=== PATIENT | male | born 1975 | race Caucasian/White ===

== ENCOUNTER 2023-10-13 23:13 | Emergency (ER) | payer MEDICAID, OTHER, SELFPAY ==
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
[2023-10-13 23:21] VITALS: BP 134/96; BP 151/82; PULSE 83; PULSE 84; RESP 18; TEMP 37.2; O2SAT 96; O2SAT 99; BMI 26.9
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
[2023-10-14] MEDS: Ibuprofen 600 MG TABLET PO (00:06)
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
[2023-10-14 01:00] VITALS: BP 151/82; PULSE 84; RESP 18; TEMP 37.2; O2SAT 96
== END 2023-10-14 01:01 ==
PROVIDERS: Emergency Provider Internal Medicine
DX: S20.211A Contusion of right front wall of thorax, initial encounter (principal); Y35.93XA Legal intervention, means unspecified, suspect injured, initial encounter; Y93.9 Activity, unspecified; Y92.9 Unspecified place or not applicable; Y99.9 Unspecified external cause status; R07.81 Pleurodynia; Z65.3 Problems related to other legal circumstances
CPT/HCPCS: 71101; 99283; 99284

== ENCOUNTER 2024-01-15 20:33 | Emergency (ER) | payer MEDICAID, OTHER, SELFPAY ==
--- NOTE | ~2024-01-15 | CT_ITS ---
EXAMINATION: IV contrast enhanced CT of the lumbar spine. CLINICAL INFORMATION: Back pain. No trauma. IV drug use. Rule out abscess. COMPARISON: None available. TECHNIQUE: IV contrast and CT of the lumbar spine. This CT examination was performed using dose optimization techniques as appropriate, variously including the following: *Automated exposure control *Adjustment of mA and/or kV according to patient size (this includes techniques or standardized protocols for targeted exams where dose is matched to indication/reason for exam; i.e. extremities or head) *Use of iterative reconstruction technique Intravenous contrast: Omnipaque 350 85 mL DLP: 424 mGy-cm FINDINGS: 5 lumbar type vertebral bodies are identified. Minimal lumbarization of the presumed S1 vertebral body is noted with a rudimentary intervertebral disc present at S1-S2. No vertebral body endplate erosions are noted. No paraspinous soft tissue inflammatory changes or phlegmonous changes noted. The psoas muscles are normal in appearance. Close scrutiny of the central canal demonstrates no findings suspicious for epidural abscess or phlegmon formation. No fractures identified. L3-L4: Partial visualization of moderate central stenosis secondary to moderate posterior broad-based disc bulge and moderate bilateral ligamentum flavum hypertrophy. L4-L5: Partial visualization of at least mild central stenosis secondary to mild posterior broad-based disc bulge and moderate bilateral ligamentum flavum hypertrophy. L5-S1: No central or foraminal stenoses identified. CT/CT lumbar spine w IV con IMPRESSION: *No evidence of infection. No findings suspicious for discitis-osteomyelitis or paraspinous infection. No gross evidence of epidural phlegmon or abscess. As clinically indicated, consider further evaluation with MRI is more sensitive examination for detection of possible infection. *Mild to moderate multilevel chronic spondylosis as detailed above. Electronically signed by: Jorge Luis Jean MD 01/16/2024 02:10 AM EDT
[2024-01-15 20:41] VITALS: BP 150/98; PULSE 92; O2SAT 100
[2024-01-15 20:44] VITALS: BMI 23.5
[2024-01-15 21:01] VITALS: BP 151/92; PULSE 90; RESP 15; TEMP 36.6; O2SAT 94
--- NOTE | 2024-01-15 21:05 | MHC.EDTECH ---
This tech assumed care of this ptupon arrival. pt refuses to change management consultant into a hospital gown. Pt states he is in to much pain to change yet is fast asleep on the stretcher
--- NOTE | 2024-01-16 00:12 | ED_ITS ---
HPI - Back Pain/Injury General Chief Complaint: Back Pain/Injury Stated Complaint: BACK PAIN S/P FALL 2 DAYS AGO Time Seen by Provider: 01/15/24 23:46 Source: patient and EMS Mode of arrival: EMS Limitations: no limitations History of Present Illness ED Provider: Dr. Ana Laura Auguste HPI Narrative: Patient comes to the emergency room via ambulance complaining of 10/10 back pain in the lumbar area. Initially, EMS reported that the patient said that 2 days ago he fell at work and his back has been hurting since then. However, when I spoke to the patient, states that he did not fall, his back you starting hurting. Patient took himself off Suboxone and gabapentin 2 months ago and has been using street IV drugs including heroin and cocaine. Patient denies fever chills. Patient states that the pain is localized, denies any radiation to lower extremities. Denies saddle anesthesia. Denies urinary/fecal incontinence/retention. Related Data Previous Rx's ?Medication ?Instructions ?Recorded acetaminophen 500 mg capsule 1,000 mg (2 x 500 mg) PO QID PRN 01/16/24 fever or pain #20 caps cyclobenzaprine 10 mg tablet 10 mg PO TID PRN muscle spasm #10 01/16/24 tabs ketorolac 10 mg tablet 10 mg PO Q8H PRN pain #10 tabs 01/16/24 Allergies Allergy/AdvReac Type Severity Reaction Status Date / Time diphenhydramine Allergy Itching Verified 01/15/24 20:55 [From Angel] Review of Systems 2 Review of Systems: Constitutional : No Weight loss, No Fever, No Chills, No Night Sweats, No Fatigue, No Malaise ENT/Mouth : No Hearing loss, No Ear Pain, No Nasal Congestion, No Sinus Pain, No Hoarseness, No sore throat, No Rhinorrhea, No Swallowing Difficulty Eyes: No Eye Pain, No Swelling, No Redness, No Foreign Body, No Discharge, No Vision Changes Cardiovascular : No Chest Pain, No SOB, No Dyspnea on Exertion, No Orthopnea, No Edema, No Palpitations Respiratory : No Cough, No Sputum, No Wheezing, No Smoke Exposure, No Dyspnea Gastrointestinal : No Nausea, No Vomiting, No Diarrhea, No Constipation, No abdominal Pain, No Hematochezia, No Melena Genitourinary : no irregular bleeding, No Dysuria, No Urinary Frequency, No Hematuria, No Urinary Incontinence, No Urgency, No Flank Pain, No Urinary Flow Changes, No Hesitancy Musculoskeletal : Complaining of back pain in the lumbar area for 2 days, No joint pain, No Myalgias, No Joint Swelling Skin : No Skin Lesions, No rash Neuro : No Weakness, No Numbness, No Paresthesias, No Loss of Consciousness, No Dizziness, No Headache Psych : No Anxiety/Panic, No Depression, No SI/HI/AH/VH, No Social Issues, Heme/Lymph: No Bruising, No Bleeding,No Lymphadenopathy Endocrine : No Polyuria, No Polydipsia, No Temperature Intolerance [facility] Past Medical History Medical History (Updated 01/16/24 @ 02:32 by Ana Laura Auguste MD) Polysubstance abuse Social History Social History Alcohol intake: current Use of substances other than those prescribed or required for medical reasons: Yes Substance Use Type: Heroin Advance Directives: No Advance Directives Information Provided: Yes Do you have a plan to hurt others: No Plan Physical Exam 2 Vital Signs: Vital Signs: Last Vital Signs Temp 98.6 F 01/16/24 00:13 Pulse 82 01/16/24 00:13 Resp 18 01/16/24 00:13 BP 148/96 H 01/16/24 00:13 Pulse Ox 95 01/16/24 00:13 O2 Del Method Room Air 01/16/24 00:13 BMI result Body Mass Index 23.5 Const: Other: Appearance: Alert. Oriented X3. No acute distress. Eyes: Pupils equal, round and reactive to light. ENT: Pharynx normal. Neck: Normal inspection. Neck supple. No lymph nodes noted. No crepitus CVS: Normal heart rate and rhythm. Pulses normal. Normal S1 and S2 Respiratory: No respiratory distress. Breath sounds normal. No Wheezing. No rales Abdomen: Soft and nontender. No rigidity. No distention. Back: Pain to palpation on the lumbar spine area. No pain over the paraspinal muscles. Negative straight leg raise test bilaterally Skin: Skin warm and dry. Normal skin color. Normal skin turgor. Extremities: No lower extremity edema. No Lacerations. No Rash Neuro: Oriented X 3. No motor deficit. No sensory deficit. Moving all extremities. No slurred speech. CN 2 through 12 grossly intact Psych: calm, cooperative, normal affect Course Course Course Narrative: All of patient's labs pending Patient will need a CT scan of the lumbar spine with contrast to rule out an abscess Medications Administered Discontinued Medications Generic Name Dose Route Start Last Admin Trade Name Isidroq PRN Reason Stop Dose Admin Iohexol 85 ml 01/16/24 00:58 10 00:59 Iohexol 350 Mg/Ml 100 Ml Infus..Btl IV 01/16/24 00:59 85 ml ONCE ONE Administration Medical Decision Making Medical Decision Making [facility] Narrative: Interpretation of labs, patient's white blood cell count 11.3, chemistry unremarkable, LFTs slightly bumped, CRP elevated but not significantly. Urinalysis negative for UTI, urine toxicology positive for opiates, buprenorphine, fentanyl, cocaine and marijuana -my interpretation of CT scan, no obvious abnormality -CT report does not show diskitis or osteomyelitis or spinal abscess -patient requesting ketorolac for pain was given IV. Also given p.o. cyclobenzaprine. Differential Diagnosis Differential Diagnoses: The differential diagnosis associated with the presentation includes (Diskitis, osteomyelitis, spinal abscess, musculoskeletal pain) Admission/Observation Consideration of admission/observation: Escalation of care including admission/observation considered (Given patient's social history, past medical history, observation or hospitalization was considered) Lab Data [facility] Lab Attestation statement: I reviewed the patient's lab results. 01/16/24 00:40 01/16/24 00:40 Labs: Lab Results 01/16/24 01/16/24 Range/Units 00:19 00:40 WBC 11.3 H (4.8-10.8) X10*3/uL RBC 5.18 (4.60-5.80) X10*6/uL Hgb 14.9 (14.0-18.0) g/dl Hct 44.7 (42.0-52.0) % MCV 86.3 (80.0-98.0) fL MCH 28.8 (27.0-33.0) pg MCHC 33.3 (31.0-36.0) g/dl RDW 13.8 (11.0-16.0) % Plt Count 255 (160-400) X10*3/uL MPV 10.1 (9.4-12.4) fL Immature Gran % (Auto) 0.6 H (0.0-0.4) % Neut % (Auto) 74.3 H (45-73) % Lymph % (Auto) 15.1 L (20-40) % [place] % (Auto) 9.1 (2-11) % Eos % (Auto) 0.6 (0-4) % Baso % (Auto) 0.3 (0-2) % Lymph # (Auto) 1.7 (1.2-4.9) X10*3/uL [place] # (Auto) 1.0 (0.1-1.2) X10*3/uL Eos # (Auto) 0.1 (0.0-0.4) X10*3/uL Baso # (Auto) 0.0 (0.0-0.2) X10*3/uL Abs Immat Gran (auto) 0.07 H (0.00-0.03) X10*3/uL Absolute Neuts (auto) 8.4 H (2.0-8.3) x10*3/uL Absolute Nucleated RBC 0.000 (0.0-0.012) X10*3/uL Nucleated RBC % (auto) 0.0 (0.0-0.2) /100WBC PT 13.6 H (10.9-12.4) SEC INR 1.2 H (0.9-1.1) Sodium 139 (135-145) mmol/L Potassium 4.2 (3.3-5.1) mmol/L Chloride 103 (96-108) mmol/L Carbon Dioxide 28 (22-29) mmol/L Anion Gap 12 (12-20) BUN 13 (9-16) mg/dL Creatinine 0.93 (0.5-1.4) mg/dL Estim Creat Clear Calc 91.8 Estimated GFR > 60 Random Glucose 118 H (60-115) mg/dL Lactic Acid 0.9 (0.5-2.0) mmol/L Calcium 9.4 (8.4-10.2) mg/dL Total Bilirubin 0.4 (0.0-1.0) mg/dL Direct Bilirubin 0.2 (0.0-0.5) mg/dL AST 41 H (5-37) U/L ALT 50 H (0-40) U/L Alkaline Phosphatase 89 (39-117) U/L C-Reactive Protein 4.12 H (< or = 0.50) mg/dL Total Protein 7.4 (6.5-8.0) g/dL Albumin 4.0 (3.5-5.0) g/dL Urine Color Yellow Urine Appearance Clear Urine pH 6.5 (5.0-9.0) Ur Specific [place] 1.010 (1.005-1.025) Urine Protein Negative (Neg-Trace) mg/dL Urine Glucose (UA) Negative (Negative) mg/dL Urine Ketones Negative (Negative) mg/dL Urine Blood Negative (Negative) Urine Nitrite Negative (Negative) Ur Leukocyte Esterase Negative (Negative) Urine Opiates Screen POSITIVE H (Not Detect) Ur Buprenorphine Scrn Positive H (Not Detect) ng/mL Ur Oxycodone Screen Not Detected (Not Detect) ng/mL Urine Methadone Screen Not Detected (Not Detect) ng/mL Urine Fentanyl Screen POSITIVE H (Not Detect) Ur Barbiturates Screen Not Detected (Not Detect) Ur Phencyclidine Scrn Not Detected (Not Detect) Ur Amphetamines Screen Not Detected (Not Detect) U Benzodiazepines Scrn Not Detected (Not Detect) Urine Cocaine Screen POSITIVE H (Not Detect) U Marijuana (THC) Screen POSITIVE H (Not Detect) Independent Interpretation I performed an independent interpretation of an: CT Scan Radiology Impression Discussion of test interpretation with radiology: I have reviewed the radiologist's reading. Radiologist Impression: FINDINGS: 5 lumbar type vertebral bodies are identified. Minimal lumbarization of the presumed S1 vertebral body is noted with a rudimentary intervertebral disc present at S1-S2. No vertebral body endplate erosions are noted. No paraspinous soft tissue inflammatory changes or phlegmonous changes noted. The psoas muscles are normal in appearance. Close scrutiny of the central canal demonstrates no findings suspicious for epidural abscess or phlegmon formation. No fractures identified. L3-L4: Partial visualization of moderate central stenosis secondary to moderate posterior broad-based disc bulge and moderate bilateral ligamentum flavum hypertrophy. L4-L5: Partial visualization of at least mild central stenosis secondary to mild posterior broad-based disc bulge and moderate bilateral ligamentum flavum hypertrophy. L5-S1: No central or foraminal stenoses identified. CT/CT lumbar spine w IV con IMPRESSION: *No evidence of infection. No findings suspicious for discitis-osteomyelitis or paraspinous infection. No gross evidence of epidural phlegmon or abscess. As clinically indicated, consider further evaluation with MRI is more sensitive examination for detection of possible infection. *Mild to moderate multilevel chronic spondylosis as detailed above. Critical Care Time Critical Care Time Critical Care Time: Yes Total Critical Care Time: 60 Attestation: I have personally provided critical care time. Time includes review of lab data, radiology results, discussion with consultants, and monitoring for potential decompensation. Intervention performed as documented. Discharge Plan Discharge Clinical Impression: Polysubstance abuse, Musculoskeletal back pain Patient Disposition: Home, Self-Care Instructions: Polysubstance Abuse (ED), Back Pain (ED) Additional Instructions: Your medications were sent to the [facility] on [id number] Please follow-up with your primary care physician tomorrow. If you have any worsening or new symptoms, please return to the emergency room or call 911 Prescriptions: New ketorolac 10 mg tablet 10 mg PO Q8H PRN (Reason: pain) Qty: 10 0RF Rx Instructions: maximum total duration of 5 days from all oral, intranasal, or parenteral formulations cyclobenzaprine 10 mg tablet 10 mg PO TID PRN (Reason: muscle spasm) Qty: 10 0RF acetaminophen 500 mg capsule 1,000 mg PO QID PRN (Reason: fever or pain) Qty: 20 0RF Stand Alone Forms: Work/School Release Print Language: Tamazight
[2024-01-16 00:13] VITALS: BP 148/96; PULSE 82; RESP 18; TEMP 37; O2SAT 95
[2024-01-16 00:36] LABS: Appearance Urine Clear; Color Urine Yellow; Glucose Urine UA Negative (Negative); Leukocyte Esterase Urine Negative (Negative); Nitrite Urine Negative (Negative); PH 6.5 (5.0-9.0); Urine Blood Negative (Negative); Urine Ketones Negative (Negative); Urine Protein Negative (Neg-Trace)
[2024-01-16 00:46] LABS: Amphetamine Screen Urine Not Detected (Not Detect); Barbiturates, Urine Not Detected (Not Detect); Benzodiazepines Screen Urine Not Detected (Not Detect); Buprenorphine Scr Positive (Not Detect); Cannabinoid Screen Urine POSITIVE (Not Detect); Cocaine Screen Urine POSITIVE (Not Detect); Fentanyl, urine POSITIVE (Not Detect); Methadone Screen, Urine Not Detected (Not Detect); Opiate Screen Urine POSITIVE (Not Detect); Oxycodone Screen Urine Not Detected (Not Detect); Phencyclidine Screen Urine Not Detected (Not Detect)
[2024-01-16 00:51] LABS: MANUAL DIFF FLAG NO
[2024-01-16 00:53] LABS: Basophils Percent Auto 0.3 % (0-2); Eosinophils Absolute Auto 0.1 X10*3/uL (0.0-0.4); Eosinophils Percent Auto 0.6 % (0-4); Hematocrit 44.7 % (42.0-52.0); Hemoglobin 14.9 g/dl (14.0-18.0); Imm Gran Abs Auto 0.07 X10*3/uL (0.00-0.03); Imm Gran Pct Auto 0.6 % (0.0-0.4); Lymphocytes Absolute Auto 1.7 X10*3/uL (1.2-4.9); Lymphocytes Percent Auto 15.1 % (20-40); Mean Corpuscular HGB Conc 33.3 g/dl (31.0-36.0); Mean Corpuscular Hemoglobin 28.8 pg (27.0-33.0); Mean Corpuscular Volume 86.3 fL (80.0-98.0); Mean Platelet Volume 10.1 fL (9.4-12.4); Monocytes Percent Auto 9.1 % (2-11); Neutrophils Absolute Auto 8.4 x10*3/uL (2.0-8.3); Neutrophils Percent Auto 74.3 % (45-73); Platelet Count 255 X10*3/uL (160-400); Red Blood Count 5.18 X10*6/uL (4.60-5.80); Red Cell Distribution Width 13.8 % (11.0-16.0); White Blood Count 11.3 X10*3/uL (4.8-10.8)
[2024-01-16] MEDS: iohexoL 350 MG/ML 100 ML INFUS..BTL 85 ML IV (00:59)
[2024-01-16 01:01] LABS: INTERNATIONAL NORM RATIO 1.2 (0.9-1.1); Lactic Acid 0.9 mmol/L (0.5-2.0); Prothrombin Time 13.6 SEC (10.9-12.4)
[2024-01-16 01:07] LABS: Alanine Aminotransferase 50 U/L (0-40); Alkaline Phosphatase 89 U/L (39-117); Anion Gap 12 (12-20); Aspartate Amino Transferase 41 U/L (5-37); Bilirubin Direct 0.2 mg/dL (0.0-0.5); Bilirubin Total 0.4 mg/dL (0.0-1.0); Blood Urea Nitrogen 13 mg/dL (9-16); Calcium 9.4 mg/dL (8.4-10.2); Carbon Dioxide 28 mmol/L (22-29); Chloride 103 mmol/L (96-108); Creatinine Clr Calc Pharmacy 91.8; Estimated Glomerular Filt Rate > 60; Glucose Random 118 mg/dL (60-115); Potassium 4.2 mmol/L (3.3-5.1); Sodium 139 mmol/L (135-145); Total Protein 7.4 g/dL (6.5-8.0)
[2024-01-16 02:20] LABS: C Reactive Protein 4.12 mg/dL (< or = 0.50)
[2024-01-16] MEDS: Cyclobenzaprine HCl 10 MG TABLET PO (02:35)
[2024-01-16] MEDS: Ketorolac Tromethamine 30 MG/ML VIAL IVPUSH (02:36)
[2024-01-16 02:44] LABS: Erythrocyte Sedimentation Rate 16 MM/HR (0-15)
[2024-01-16 02:59] VITALS: BP 138/72; PULSE 75; RESP 16; TEMP 36.9; O2SAT 95
== END 2024-01-16 03:01 | disposition home or self-care (01) ==
PROVIDERS: Emergency Provider Emergency Medicine
DX: M54.50 Low back pain, unspecified (principal); F11.10 Opioid abuse, uncomplicated; M79.10 Myalgia, unspecified site; F14.10 Cocaine abuse, uncomplicated; F12.10 Cannabis abuse, uncomplicated; Z71.51 Drug abuse counseling and surveillance of drug abuser; Z79.899 Other long term (current) drug therapy; Z51.81 Encounter for therapeutic drug level monitoring
CPT/HCPCS: 36415; 72132; 80048; 80076; 80307; 81003; 83605; 85025; 85610; 85652; 86140; 87040; 87077; 87186; 87205; 96374; 99285; J1885; Q9967

== ENCOUNTER 2024-01-20 10:08 | Inpatient (IN) | payer MEDICAID, SELFPAY ==
--- NOTE | ~2024-01-20 | MR_ITS ---
EXAMINATION: MR LUMBAR SPINE WITHOUT AND WITH CONTRAST CLINICAL INFORMATION: ? Epidural abscess COMPARISON: None available. TECHNIQUE: MRI of the lumbar spine was obtained using routine sequences with and without contrast. Intravenous contrast: Magnevist 6 mL FINDINGS: There are 12 nonrib-bearing lumbar-type vertebrae. Mild dextrocurvature of the thoracolumbar junction. No listhesis. No acute bone marrow abnormality or suspicious enhancement. The vertebral body heights are preserved. Multilevel disc desiccation without significant disc height loss. The visualized spinal cord is normal in caliber. No abnormal cord signal or enhancement. The conus medullaris terminates at L1. No suspicious intracanalicular fluid collection identified. T12-L1: No significant spinal canal or neural foraminal narrowing. L1-2: Diffuse disc bulge. No significant spinal canal or neural foraminal narrowing. L2-3: Diffuse disc bulge and bilateral facet arthrosis. No significant spinal canal or neural foraminal narrowing. L3-4: Diffuse disc bulge. No significant spinal canal stenosis. Mild bilateral neural foraminal narrowing with the disc abutting the exiting L3 nerve roots bilaterally. L4-5: Diffuse disc bulge and bilateral facet arthrosis. No significant spinal canal stenosis. Mild bilateral neural foraminal narrowing with the disc abutting the exiting L4 nerve roots bilaterally. L5-S1: Diffuse disc bulge and bilateral facet arthrosis. No significant spinal canal stenosis. Mild bilateral neural foraminal narrowing with the disc abutting the exiting L5 nerve roots bilaterally. The paravertebral soft tissues are unremarkable. MR/MR lumbar spine wo/w con IMPRESSION: 1. No evidence of epidural abscess or other acute abnormality of the lumbar spine. 2. Multilevel degenerative changes of the lumbar spine without significant spinal canal stenosis. Mild bilateral neural foraminal narrowing from L3-L4 to L5-S1 with the disc abutting the exiting L3 through L5 nerve roots bilaterally. Electronically signed by: Varun Mcneil MD 01/20/2024 05:29 PM EDT
--- NOTE | ~2024-01-20 | XR_ITS ---
EXAMINATION: XR CHEST 2 VIEW CLINICAL INFORMATION: Chest pain COMPARISON: 10/13/2023 TECHNIQUE: PA and lateral views of the chest obtained. FINDINGS: The lungs are clear. There are no pleural effusions. The cardiomediastinal silhouette is normal. XR/XR chest 2V IMPRESSION: No acute cardiopulmonary disease. Electronically signed by: Kareem Stiles MD 01/20/2024 12:14 PM EDT RP
[2024-01-20 10:31] VITALS: BP 126/81; PULSE 87; RESP 18; TEMP 36.9; O2SAT 98; BMI 22.7
--- NOTE | 2024-01-20 11:20 | ECG_ITS ---
Test Reason : chest pain Blood Pressure : / mmHG Vent. Rate : 076 BPM Atrial Rate : 076 BPM P-R Int : 154 ms QRS Dur : 090 ms QT Int : 374 ms P-R-T Axes : 063 065 043 degrees QTc Int : 420 ms Normal sinus rhythm Minimal voltage criteria for LVH, may be normal variant ( Sokolow-Hernandez ) Borderline ECG No previous ECGs available Referred By: Tena Khalil Electronically Signed By:ELENA COVINGTON
[2024-01-20 11:55] LABS: MANUAL DIFF FLAG NO
[2024-01-20 12:01] LABS: Basophils Percent Auto 0.3 % (0-2); Eosinophils Absolute Auto 0.1 X10*3/uL (0.0-0.4); Eosinophils Percent Auto 0.5 % (0-4); Hematocrit 42.1 % (42.0-52.0); Hemoglobin 14.2 g/dl (14.0-18.0); Imm Gran Abs Auto 0.03 X10*3/uL (0.00-0.03); Imm Gran Pct Auto 0.3 % (0.0-0.4); Lymphocytes Absolute Auto 1.5 X10*3/uL (1.2-4.9); Lymphocytes Percent Auto 14.2 % (20-40); Mean Corpuscular HGB Conc 33.7 g/dl (31.0-36.0); Mean Corpuscular Hemoglobin 29.2 pg (27.0-33.0); Mean Corpuscular Volume 86.4 fL (80.0-98.0); Mean Platelet Volume 9.7 fL (9.4-12.4); Monocytes Absolute Auto 0.7 X10*3/uL (0.1-1.2); Monocytes Percent Auto 6.7 % (2-11); Neutrophils Absolute Auto 8.1 x10*3/uL (2.0-8.3); Platelet Count 321 X10*3/uL (160-400); Red Blood Count 4.87 X10*6/uL (4.60-5.80); Red Cell Distribution Width 13.2 % (11.0-16.0); White Blood Count 10.3 X10*3/uL (4.8-10.8)
[2024-01-20 12:08] LABS: Lactic Acid 0.7 mmol/L (0.5-2.0)
[2024-01-20 12:11] LABS: Anion Gap 11 (12-20); Blood Urea Nitrogen 13 mg/dL (9-16); Calcium 9.9 mg/dL (8.4-10.2); Carbon Dioxide 30 mmol/L (22-29); Chloride 98 mmol/L (96-108); Creatinine Clr Calc Pharmacy 97.6; Estimated Glomerular Filt Rate > 60; Glucose Random 112 mg/dL (60-115); Sodium 134 mmol/L (135-145)
[2024-01-20 12:37] LABS: C Reactive Protein 5.98 mg/dL (< or = 0.50)
--- NOTE | 2024-01-20 12:41 | ED_ITS ---
HPI - General Adult General Chief complaint: Recheck/Abnormal Lab/Rx Stated complaint: Back pain Time Seen by Provider: 01/20/24 12:40 History of Present Illness ED Provider: Dr. Rowell HPI narrative: 48 y/o M patient; [facility] polysubstance abuse; presents from home reporting he received a call that he had two positive blood cultures. The patient was seen in this emergency on 01/16/2024 for atraumatic lower back pain. He had a reassuring work up at that time and was discharged to home. His CT Lumbar Spine was unremarkable. He otherwise denies: nausea/vomiting, abdominal pain, cough/congestion, syncope. He denies: saddle anesthesia, urinary of stool incontinence. He has been ambulating without difficulty. Patient admits to use of IV cocaine and heroin - last used 1 bag of IV heroin, and 1 bag of crack cocaine immediately prior to arrival. Related Data Home Medications ?Medication ?Instructions ?Recorded ?Confirmed No Known Home Meds 01/20/24 01/20/24 Allergies Allergy/AdvReac Type Severity Reaction Status Date / Time diphenhydramine Allergy Itching Verified 01/20/24 10:37 [From Benadryl] Review of Systems 2 Review of Systems: Yes all other systems are reviewed and are negative Neurologic: Denies Sensory deficit (Neuro) [facility] Past Medical History Attestation statement: The following information was validated with the patient. Source: old records reviewed Medical History Polysubstance abuse Social History Social History Alcohol intake: current Use of substances other than those prescribed or required for medical reasons: Yes Substance Use Type: Heroin Last Used Substance: Just Prior to Admission Advance Directives: No Do you have a plan to hurt others: No Plan Physical Exam ED Vital Signs: Vital Signs - 24 hr 01/20/24 10:31 01/20/24 19:08 01/20/24 20:06 Temperature 98.4 F 98.5 F 98.7 F Pulse Rate 87 90 83 Respiratory Rate 18 16 16 Blood Pressure 126/81 128/86 150/94 H Pulse Oximetry 98 98 98 Oxygen Delivery Method Room Air Room Air Room Air BMI result Body Mass Index 22.7 Patient is afebrile and hemodynamically stable. Const General: cooperative Orientation/consciousness: patient oriented x3 HENMT Head: Yes normal to inspection and Yes atraumatic Eyes General: appearance normal, both eyes and all related structures Pupils: Equal, round and reactive pupils present EOM: No Nystagmus present Neck Neck: Yes normal visual inspection, Yes full ROM, Yes supple and No tender Chest Chest palpation & inspection: normal inspection of the chest and normal palpation of entire chest wall Resp Effort & Inspection: normal respiratory effort, able to speak in complete sentences, no cough and no respiratory distress Auscultation: clear to auscultation bilaterally Cardio Rate: regular rate Rhythm: regular rhythm Peripheral pulses: Peripheral pulses 2+ throughout GI Inspection: Yes normal to inspection, No Abdominal wall edema and No distended Palpation (GI): Soft to palpation, not firm, nontender, no guarding and not rigid Auscultation: normal bowel sounds Back/Spine/Pelvis Back: No back tenderness Neuro General: patient oriented x3 Cranial nerves: Yes Equal, round and reactive pupils present and No Nystagmus present Gait exam (Neuro): Normal gait present Motor exam (neuro): 5/5 motor strength present throughout Sensory Exam: No Sensory deficit (Neuro) Coordination: [id number] test normal Course Course Course Narrative: Patient is afebrile and hemodynamically stable. Reviewed positive blood cultures: two bottles positive for streptococcus mutans. Will repeat blood cultures. Patient will need MRI imaging of his spine. Standard of care is MRI Spinal Screening due to risk of skip lesions with epidural abscess. However at this time only able to get MRI Lumbar Spine due to hospital protocol so this will be obtained as initial imaging. Infectious disease consulted. Treating with Zosyn and Vancomycin IV. Labs reviewed. No leukocytosis noted. CRP 5.98. ESR 28. UA unremarkable. MRI Lumbar Spine unremarkable. Provided toradol for pain management. Plan: Admit to hospitalist Condition: Stable Medications Administered Discontinued Medications Generic Name Dose Route Start Last Admin Trade Name Freq PRN Reason Stop Dose Admin Gadobutrol 10 ml 01/20/24 17:04 01/20/24 17:04 Gadobutrol 10 Ml Vial IVPUSH 01/20/24 17:05 6 ml ONCE ONE Administration Vancomycin HCl 2,000 mg in 500 mls @ 250 mls/hr 01/20/24 13:05 01/20/24 17:41 Vancomycin/Ns IV 01/20/24 15:04 Infused ONCE ONE Infusion Piperacillin Sod/Tazobactam 100 mls @ 200 mls/hr 01/20/24 13:05 01/20/24 14:09 Sod 4.5 gm/ Sodium Chloride IV 01/20/24 13:34 Infused ONCE ONE Infusion Medical Decision Making Lab Data 01/20/24 11:50 01/20/24 11:50 Labs: Lab Results 01/20/24 01/20/24 Range/Units 11:50 13:18 WBC 10.3 (4.8-10.8) X10*3/uL RBC 4.87 (4.60-5.80) X10*6/uL Hgb 14.2 (14.0-18.0) g/dl Hct 42.1 (42.0-52.0) % MCV 86.4 (80.0-98.0) fL MCH 29.2 (27.0-33.0) pg MCHC 33.7 (31.0-36.0) g/dl RDW 13.2 (11.0-16.0) % Plt Count 321 D (160-400) X10*3/uL MPV 9.7 (9.4-12.4) fL Immature Gran % (Auto) 0.3 (0.0-0.4) % Neut % (Auto) 78.0 H (45-73) % Lymph % (Auto) 14.2 L (20-40) % [place] % (Auto) 6.7 (2-11) % Eos % (Auto) 0.5 (0-4) % Baso % (Auto) 0.3 (0-2) % Lymph # (Auto) 1.5 (1.2-4.9) X10*3/uL [place] # (Auto) 0.7 (0.1-1.2) X10*3/uL Eos # (Auto) 0.1 (0.0-0.4) X10*3/uL Baso # (Auto) 0.0 (0.0-0.2) X10*3/uL Abs Immat Gran (auto) 0.03 (0.00-0.03) X10*3/uL Absolute Neuts (auto) 8.1 (2.0-8.3) x10*3/uL Absolute Nucleated RBC 0.000 (0.0-0.012) X10*3/uL Nucleated RBC % (auto) 0.0 (0.0-0.2) /100WBC ESR 28 H (0-15) MM/HR Sodium 134 L (135-145) mmol/L Potassium 5.0 (3.3-5.1) mmol/L Chloride 98 (96-108) mmol/L Carbon Dioxide 30 H (22-29) mmol/L Anion Gap 11 L (12-20) BUN 13 (9-16) mg/dL Creatinine 0.87 (0.5-1.4) mg/dL Estim Creat Clear Calc 97.6 Estimated GFR > 60 Random Glucose 112 (60-115) mg/dL Lactic Acid 0.7 (0.5-2.0) mmol/L Calcium 9.9 (8.4-10.2) mg/dL C-Reactive Protein 5.98 H (< or = 0.50) mg/dL Urine Color Yellow Urine Appearance Clear Urine pH 6.5 (5.0-9.0) Ur Specific [place] <= 1.005 (1.005-1.025) Urine Protein Negative (Neg-Trace) mg/dL Urine Glucose (UA) Negative (Negative) mg/dL Urine Ketones Negative (Negative) mg/dL Urine Blood Negative (Negative) Urine Nitrite Negative (Negative) Ur Leukocyte Esterase Negative (Negative) Urine Opiates Screen POSITIVE H (Not Detect) Ur Buprenorphine Scrn Not Detected (Not Detect) ng/mL Ur Oxycodone Screen Not Detected (Not Detect) ng/mL Urine Methadone Screen Not Detected (Not Detect) ng/mL Urine Fentanyl Screen POSITIVE H (Not Detect) Ur Barbiturates Screen Not Detected (Not Detect) Ur Phencyclidine Scrn Not Detected (Not Detect) Ur Amphetamines Screen Not Detected (Not Detect) U Benzodiazepines Scrn Not Detected (Not Detect) Urine Cocaine Screen POSITIVE H (Not Detect) U Marijuana (THC) Screen Not Detected (Not Detect) Ethyl Alcohol < 10 mg/dL Independent Interpretation I performed an independent interpretation of an: EKG Interpretation: NSR 76BPM with normal intervals. Radiology Impression Discussion of test interpretation with radiology: I have reviewed the radiologist's reading. Radiologist Impression: EXAMINATION: MR LUMBAR SPINE WITHOUT AND WITH CONTRAST CLINICAL INFORMATION: ? Epidural abscess COMPARISON: None available. TECHNIQUE: MRI of the lumbar spine was obtained using routine sequences with and without contrast. Intravenous contrast: Magnevist 6 mL FINDINGS: There are 12 nonrib-bearing lumbar-type vertebrae. Mild dextrocurvature of the thoracolumbar junction. No listhesis. No acute bone marrow abnormality or suspicious enhancement. The vertebral body heights are preserved. Multilevel disc desiccation without significant disc height loss. The visualized spinal cord is normal in caliber. No abnormal cord signal or enhancement. The conus medullaris terminates at L1. No suspicious intracanalicular fluid collection identified. T12-L1: No significant spinal canal or neural foraminal narrowing. L1-2: Diffuse disc bulge. No significant spinal canal or neural foraminal narrowing. L2-3: Diffuse disc bulge and bilateral facet arthrosis. No significant spinal canal or neural foraminal narrowing. L3-4: Diffuse disc bulge. No significant spinal canal stenosis. Mild bilateral neural foraminal narrowing with the disc abutting the exiting L3 nerve roots bilaterally. L4-5: Diffuse disc bulge and bilateral facet arthrosis. No significant spinal canal stenosis. Mild bilateral neural foraminal narrowing with the disc abutting the exiting L4 nerve roots bilaterally. L5-S1: Diffuse disc bulge and bilateral facet arthrosis. No significant spinal canal stenosis. Mild bilateral neural foraminal narrowing with the disc abutting the exiting L5 nerve roots bilaterally. The paravertebral soft tissues are unremarkable. MR/MR lumbar spine wo/w con IMPRESSION: 1. No evidence of epidural abscess or other acute abnormality of the lumbar spine. 2. Multilevel degenerative changes of the lumbar spine without significant spinal canal stenosis. Mild bilateral neural foraminal narrowing from L3-L4 to L5-S1 with the disc abutting the exiting L3 through L5 nerve roots bilaterally. Electronically signed by: Varun Mcneil MD 01/20/2024 05:29 PM EDT RP Discharge Plan Discharge Clinical Impression: Bacteremia, Polysubstance abuse Patient Disposition: Admitted As Inpatient Prescriptions: No Action No Known Home Meds Print Language: Ivorian
[2024-01-20 13:05] LABS: Erythrocyte Sedimentation Rate 28 MM/HR (0-15)
[2024-01-20 13:28] LABS: Appearance Urine Clear; Color Urine Yellow; Glucose Urine UA Negative (Negative); Leukocyte Esterase Urine Negative (Negative); Nitrite Urine Negative (Negative); PH 6.5 (5.0-9.0); Specific Gravity - Urine <= 1.005 (1.005-1.025); Urine Blood Negative (Negative); Urine Ketones Negative (Negative); Urine Protein Negative (Neg-Trace)
[2024-01-20] MEDS: Piperacillin Sodium/Tazobactam 4.5 GM in 0.9 % Sodium Chloride 100 ML IV (13:39)
[2024-01-20 13:40] LABS: Amphetamine Screen Urine Not Detected (Not Detect); Barbiturates, Urine Not Detected (Not Detect); Benzodiazepines Screen Urine Not Detected (Not Detect); Buprenorphine Scr Not Detected (Not Detect); Cannabinoid Screen Urine Not Detected (Not Detect); Cocaine Screen Urine POSITIVE (Not Detect); Fentanyl, urine POSITIVE (Not Detect); Methadone Screen, Urine Not Detected (Not Detect); Opiate Screen Urine POSITIVE (Not Detect); Oxycodone Screen Urine Not Detected (Not Detect); Phencyclidine Screen Urine Not Detected (Not Detect)
[2024-01-20 13:44] LABS: Ethanol < 10 mg/dL
[2024-01-20] MEDS: vancomycin/NS 2,000 MG/500 ML PLAST..BAG 250 MG IV (14:34)
--- NOTE | 2024-01-20 16:27 | PHA.MEDREC ---
Addendum entered by Dana Lozoya RPh 01/20/24 16:37: Reviewed by [facility] Original Note: Pharmacy Consult ? Medication Reconciliation Pharmacy has completed the medication reconciliation. Utilized library attendant Amy and spoke to patient and he confirmed he is not taking any medication at the moment. He stated he was taking Cyclobenzaprine for muscle spasms but states he did not like that medication due to how it makes him feel.
[2024-01-20] MEDS: gadobutroL 10 ML VIAL IVPUSH (17:04)
[2024-01-20 19:08] VITALS: BP 128/86; PULSE 90; RESP 16; TEMP 36.9; O2SAT 98
[2024-01-20 20:06] VITALS: BP 150/94; PULSE 83; RESP 16; TEMP 37.1; O2SAT 98
[2024-01-20] MEDS: Ketorolac Tromethamine 15 MG/ML VIAL IVPUSH (20:33)
--- NOTE | 2024-01-20 20:58 | PM.IMHP ---
History of Present Illness Date of Service: 01/20/24 Attending physician on admission: Rachel Candelaria Chief Complaint: Positive blood cultrures Pt is a 48-year-old male with a PMH significant for?polysubstance use disorder, IVDU, and mood disorder not currently on home meds who presents to the ED for bacteremia. Patient initially presented to the ED on 01/16/2024 complaining of 10/10 atraumatic lumbar back pain. Workup at that time was negative, including reassuring labs and negative CT of lumbar spine. Patient was discharged home on ketorolac, cyclobenzaprine, and acetaminophen. However, 2/2 blood cultures came back positive for Streptococcus mutans susceptible to ceftriaxone and vancomycin. Phone call was left for patient's sister who eventually was able to contact him and told him to go back to the ED. Patient himself currently continues to complain of lower back pain and difficulty ambulating. Describes pain as a ?burning sensation? that is worse with movement and ambulation, and alleviated ?when I have drugs in my system . Unclear etiology: pt denies any fall or trauma to the area. Reports just started hurting seven days ago. Patient denies numbness or tingling in extremities. No saddle anesthesia. Denies any changes to bowel or bladder habits. Denies fever, chills, nausea, vomiting, abdominal pain. No chest pain/pressure, palpitations. Denies shortness or breath or difficulty breathing. In the ED pt was mildly hypertensive at 150/94, vitals otherwise stable and WNL. Labs were significant for elevated ESR of 28, CRP 5.98, and sodium 134. No leukocytosis. Stable H&H. Renal function baseline. UA negative for UTI. Tox screen positive for opiates, fentanyl, and cocaine. CXR showed no acute cardiopulmonary disease. MRI of lumbar spine showed no evidence of epidural abscess or acute abnormality. Did show multilevel degenerative changes of lumbar spine without significant stenosis. EKG demonstrated normal sinus rhythm without evidence of significant ST elevations or depressions. Pt was treated with vancomycin, Zosyn, and ketorolac. Pt will be admitted to the hospital for treatment and further evaluation of bacteremia requiring IV antibiotics. Review of Systems Review of Systems: Yes all other systems are reviewed and are negative [facility] Medical History Polysubstance abuse Social History Alcohol intake: current Use of substances other than those prescribed or required for medical reasons: Yes Substance Use Type: Heroin Last Used Substance: Just Prior to Admission Advance Directives: No Do you have a plan to hurt others: No Plan Meds Allergies Allergy/AdvReac Type Severity Reaction Status Date / Time diphenhydramine Allergy Itching Verified 01/20/24 10:37 [From Benadryl] Home Medications ?Medication ?Instructions ?Recorded ?Confirmed ?Last Taken ?Type No Known Home Meds 01/20/24 01/20/24 Unknown History Physical Exam Vital Signs and Narrative: Vital Signs: Last Vital Signs Temp 98.7 F 01/20/24 20:06 Pulse 83 01/20/24 20:06 Resp 16 01/20/24 20:06 BP 150/94 H 01/20/24 20:06 Pulse Ox 98 01/20/24 20:06 O2 Del Method Room Air 01/20/24 20:06 BMI result Body Mass Index 22.7 General: AOx3, no acute distress Resp: CTA bilaterally CVS: S1, S2, RRR GI: +BS, NT, no distention Skin: Warm, dry Neuro: Cranial nerves II-XII grossly intact bilaterally. Motor grossly intact bilaterally Back: Spinous process non-tender, paraspinal muscles nontender, preserved lumbar ROM Extremities: No edema Psych: Appropriate affect Results Labs 01/20/24 11:50 01/20/24 11:50 Labs: Laboratory Results - last 24 hr 01/20/24 01/20/24 11:50 13:18 MCV 86.4 MCH 29.2 MCHC 33.7 RDW 13.2 Plt Count 321 D MPV 9.7 Immature Gran % (Auto) 0.3 Neut % (Auto) 78.0 H Lymph % (Auto) 14.2 L [place] % (Auto) 6.7 Eos % (Auto) 0.5 Baso % (Auto) 0.3 Lymph # (Auto) 1.5 [place] # (Auto) 0.7 Eos # (Auto) 0.1 Baso # (Auto) 0.0 Abs Immat Gran (auto) 0.03 Absolute Neuts (auto) 8.1 Absolute Nucleated RBC 0.000 Nucleated RBC % (auto) 0.0 ESR 28 H Anion Gap 11 L Estim Creat Clear Calc 97.6 Estimated GFR > 60 Random Glucose 112 Lactic Acid 0.7 Calcium 9.9 C-Reactive Protein 5.98 H Urine Color Yellow Urine Appearance Clear Urine pH 6.5 Ur Specific [place] <= 1.005 Urine Protein Negative Urine Glucose (UA) Negative Urine Ketones Negative Urine Blood Negative Urine Nitrite Negative Ur Leukocyte Esterase Negative Urine Opiates Screen POSITIVE H Ur Buprenorphine Scrn Not Detected Ur Oxycodone Screen Not Detected Urine Methadone Screen Not Detected Urine Fentanyl Screen POSITIVE H Ur Barbiturates Screen Not Detected Ur Phencyclidine Scrn Not Detected Ur Amphetamines Screen Not Detected U Benzodiazepines Scrn Not Detected Urine Cocaine Screen POSITIVE H U Marijuana (THC) Screen Not Detected Ethyl Alcohol < 10 Imaging Radiologist's Impressions: Impressions Chest X-Ray 01/20/24 11:20 IMPRESSION: No acute cardiopulmonary disease. Electronically signed by: Kareem Stiles MD 01/20/2024 12:14 PM EDT RP Lumbar Spine MRI 01/20/24 12:48 IMPRESSION: 1. No evidence of epidural abscess or other acute abnormality of the lumbar spine. 2. Multilevel degenerative changes of the lumbar spine without significant spinal canal stenosis. Mild bilateral neural foraminal narrowing from L3-L4 to L5-S1 with the disc abutting the exiting L3 through L5 nerve roots bilaterally. Electronically signed by: Varun Mcneil MD 01/20/2024 05:29 PM EDT RP Assessment and Plan (1) Bacteremia: Status: Acute Plan Pt is a 48-year-old male with a PMH significant for?polysubstance use disorder, IVDU, and mood disorder not currently on home meds who presents to the ED for bacteremia. Pt will be admitted to the hospital for treatment and further evaluation of bacteremia requiring IV antibiotics. Bacteremia 2/2 blood cultures from 01/14 positive for Streptococcus mutans Likely secondary to IVDU No sepsis: No tachycardic, tachypnea, fever, or leukocytosis; lactic acid WNL at 0.7 Will treat with vancomycin and Zosyn, started 01/20/2024 Echocardiogram ID consult Repeat blood cultures Lower back pain Ongoing x7 days, rates 01/14 without pain med/drugs Unclear etiology: No reported fall, trauma MRI of spine negative for epidural abscess or acute abnormality; multilevel degenerative changes without significant spinal canal stenosis Analgesics for pain management PT consult Polysubstance use disorder IVDU of cocaine and heroin Last used just prior to hospital presentation Previously on Suboxone 12 mg Monitor on COWS Addiction medicine consult Full Code Attending:?Dr. Cespedes DVT Prophylaxis: Lovenox Pt will require a hospitalization of at least two nights for treatment of?bacteremia likely secondary from IVDU that will require administration of IV antibiotics. Quality Stroke Does the patient have a stroke diagnosis?: No VTE Prior VTE?: No VTE Risk Level:: Medical - moderate - high VTE Device Contraindication: Treatment Not Indicated VTE Drug Contraindication: N/A - Med Ordered
[2024-01-20] MEDS: Piperacillin Sodium/Tazobactam 3.375 GM in 0.9 % Sodium Chloride 50 ML IV (22:16)
[2024-01-20] MEDS: Enoxaparin Sodium 40 MG/0.4 ML SYRINGE SUBCUT (22:17)
[2024-01-20] MEDS: oxyCODONE HCl Immed Release 5 MG TABLET PO (22:30)
[2024-01-20 22:50] VITALS: BP 151/93; PULSE 77; RESP 16; TEMP 36.9; O2SAT 98
[2024-01-20] MEDS: Acetaminophen 325 MG TABLET 650 MG PO (22:51)
--- NOTE | 2024-01-20 22:59 | PC.NURSE ---
late entry: pt admitted to writter used 2 bags of heroin [employer]ECUTIVE- security to bedside, belongings searched, pt changed over- belongings in
[2024-01-21] MEDS: 0.9 % Sodium Chloride Flush 3 ML SYRINGE IVFLUSH ×4 (01:00→22:55)
[2024-01-21 01:36] VITALS: BP 153/91; PULSE 72; RESP 18; TEMP 36.7; O2SAT 98
[2024-01-21] MEDS: vancomycin HCL 1,000 MG in 0.9 % Sodium Chloride 250 ML 270 MG IV ×3 (01:58→23:24)
[2024-01-21] MEDS: oxyCODONE HCl Immed Release 5 MG TABLET PO (02:00)
[2024-01-21] MEDS: Melatonin 3 MG TABLET 6 MG PO (02:30)
[2024-01-21] MEDS: Piperacillin Sodium/Tazobactam 3.375 GM in 0.9 % Sodium Chloride 50 ML IV ×4 (04:18→22:47)
[2024-01-21] MEDS: Acetaminophen 325 MG TABLET 650 MG PO ×4 (04:19→22:53)
[2024-01-21] MEDS: LORazepam 2 MG/ML VIAL 1 MG IVPUSH ×2 (04:19→10:20)
[2024-01-21] MEDS: Ketorolac Tromethamine 30 MG/ML VIAL IVPUSH ×2 (04:23→10:12)
[2024-01-21 05:27] LABS: Anion Gap 13 (12-20); Blood Urea Nitrogen 16 mg/dL (9-16); Calcium 8.9 mg/dL (8.4-10.2); Carbon Dioxide 24 mmol/L (22-29); Chloride 104 mmol/L (96-108); Creatinine Clr Calc Pharmacy 96.5; Estimated Glomerular Filt Rate > 60; Glucose Random 127 mg/dL (60-115); Magnesium 2.3 mg/dL (1.6-2.6); Potassium 4.1 mmol/L (3.3-5.1); Sodium 137 mmol/L (135-145)
[2024-01-21 06:23] VITALS: BP 147/94; PULSE 64; RESP 18; TEMP 36.7; O2SAT 98
--- NOTE | 2024-01-21 07:00 | CA_ITS ---
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 The visually estimated ejection fraction is between 65-70%. - No obvious valvular pathology seen on this study. Findings Left Ventricle Normal left ventricular cavity size. There is mildly increased left ventricular wall thickness. The left ventricular systolic function is normal. The visually estimated ejection fraction is between 65-70%. There is no evidence of regional wall motion abnormalities. Diastolic function is normal for age. Right Ventricle The right ventricle was not well visualized. Normal right ventricular cavity size. Atria Both atria are normal in size. Aortic Valve The aortic valve was not well visualized. There is no aortic valve stenosis. There is no aortic valve regurgitation. Mitral Valve The mitral valve appears normal. There is no mitral valve regurgitation. There is no mitral valve stenosis. Pulmonic Valve The pulmonic valve is likely normal. Tricuspid Valve Normal tricuspid valve structure. There is trace tricuspid valve regurgitation. There is no evidence of pulmonary hypertension. Great Vessels The asc aorta is normal in size. Venous The inferior vena cava is normal in size and collapses greater than 50% with inspiration. Pericardium/Pleural There is no evidence of pericardial effusion. Prior Study Comparison No prior study available for comparison. Recommendations, Care & Conclusions No obvious valvular pathology seen on this study. Measurements 2D Linear Measurements IVSd: 1.12 0.6-0.9/0.6-1.0 cm LVIDd: 4.54 3.9-5.3/4.2-5.9 cm LVIDd Index: 2.58 2.4-3.2/2.2-3.1 cm/m2 LVIDs: 3.09 2.0-3.6 cm LVPWd: 1.11 0.7-1.1 cm Ao Root: 3.20 2.1-3.5 cm LA Diam: 3.50 2.7-3.8/3.0-4.0 cm LAIDs Index: 1.99 1.5-2.3 cm/m2 LV Mass: 225.38 67-162/88-224 g LV Mass Index: 128.06 43-95/49-115 g/m2 LVOT Diam: 2.00 3.0+(-)1.3 cm 2D Systolic Function EF 4C: 75.90 >55% EF 2C: 78.10 >55% EF BiP: 76.70 >55% Mitral Valve MV Pk E: 0.79 MV PK A: 0.51 MV Decel Time: 277.00 E/A: 1.60 E'Lateral: 12.60 E'Medial: 10.40 E/E' Med: 7.60 E/E' Lat: 6.30 PHT: 81.00 MVA PHT: 2.72 Decel Rogers: 2.86 Aortic Valve AoV Pk [place]: 1.59 AoV Mn [place]: 1.07 AoV VTI: 0.31 AoV Pk Grad: 10.00 Aov Mn Grad: 6.00 CAMI Cont.VTI: 1.95 LVOT LVOT Pk [place]: 0.88 LVOT Mn [place]: 0.63 LVOT VTI: 0.19 LVOT Pk Grad: 3.00 LVOT Mn Grad: 2.00 LVOT Diam: 2.00 LVOT Area: 3.14 Diastolic Function MV Pk E: 0.79 MV Pk A: 0.51 E/A: 1.60 E'Medial: 10.40 E/E' Med: 7.60 E' Laterial: 12.60 E/E' Lat: 6.30 Tricuspid Valve TR Pk [place]: 2.35 TR Pk Grad: 22.00 RA Press: 3.00 RVSP: 25.00 Great Vessels Aorta Ao Root-2D: 3.20 2.0-3.7 cm Ao Asc: 3.30 2.1-3.4 cm Pulmonary Valve PV Pk [place]: 0.91 Peak PV Grad: 3.00 Updated in Other Vendor System with Status of Final Chato Carney MD electronically signed on 01/21/2024 5:12:42 PM with status of Final
--- NOTE | 2024-01-21 08:09 | P.PNIM_ITS ---
Subjective Subjective Date of Service: 01/21/24 Review of Systems Follow up bacteremia Having some withdrawal symptoms Physical Exam 2 Vital Signs: Vital Signs: Last Vital Signs Temp 98.0 F 01/21/24 06:23 Pulse 64 01/21/24 06:23 Resp 18 01/21/24 06:23 BP 147/94 H 01/21/24 06:23 Pulse Ox 98 01/21/24 06:23 O2 Del Method Room Air 01/21/24 06:23 BMI result Body Mass Index 22.7 Appearing in no acute distress lung sounds are clear to auscultation heart regular rate rhythm, clear S1, S2 positive bowel sounds, abdomen is soft, nontender neuro patient is alert x3, no focal deficits Objective Data Active Medications Acetaminophen (Acetaminophen 325 Mg Tablet) 650 mg PO Q6H [facility] Last Admin: 01/21/24 04:19 Dose: 650 mg Documented By: MT Benzonatate (Benzonatate 100 Mg Capsule) 100 mg PO TID PRN PRN Reason: Cough Calcium Carbonate (Calcium Carbonate 750 Mg Tab.Chew) 750 mg PO Q4H PRN PRN Reason: Heartburn Cyclobenzaprine HCl (Cyclobenzaprine Hcl 10 Mg Tablet) 10 mg PO TID PRN PRN Reason: Muscle Spasm Dicyclomine HCl (Dicyclomine Hcl 10 Mg Capsule) 10 mg PO Q6H PRN PRN Reason: abdominal cramping Enoxaparin Sodium (Enoxaparin Sodium 40 Mg/0.4 Ml Syringe) 40 mg SUBCUT Q24H [facility] Last Admin: 01/20/24 22:17 Dose: 40 mg Documented By: KIKE Piperacillin Sod/Tazobactam (Sod 3.375 gm/ Sodium Chloride) 50 mls @ 100 mls/hr IV Q6H [facility] Last Infusion: 01/21/24 05:15 Dose: Infused Documented By: MT Vancomycin HCl 1,000 mg/ (Sodium Chloride) 270 mls @ 270 mls/hr IV Q12H [facility] Last Infusion: 01/21/24 04:02 Dose: Infused Documented By: MT Ketorolac Tromethamine (Ketorolac Tromethamine 30 Mg/Ml Vial) 30 mg IVPUSH Q6H [facility] Stop: 01/21/24 10:11 Last Admin: 01/21/24 04:23 Dose: 30 mg Documented By: MT Loperamide HCl (Loperamide Hcl 2 Mg Capsule) 4 mg PO Q6H PRN PRN Reason: Diarrhea Magnesium Hydroxide (Milk Of Magnesia 30 Ml Oral.Susp) 30 ml PO DAILY PRN PRN Reason: Constipation Ondansetron HCl (Ondansetron Hcl 4 Mg/2 Ml Vial) 4 mg IVPUSH Q8H PRN PRN Reason: Nausea and Vomiting Oxycodone HCl (Oxycodone Hcl Immed Release 5 Mg Tablet) 5 mg PO Q4H PRN PRN Reason: Pain, Severe (Pain Scale 7-10) Last Admin: 01/21/24 02:00 Dose: 5 mg Documented By: MT Pharmacy Consult (Consult Rx Vancomycin Dosing) 1 each MISCELLANE DAILY PRN PRN Reason: Consult order Prochlorperazine Edisylate (Prochlorperazine Edisylate 10 Mg/2 Ml Vial) 10 mg IVPUSH Q6H PRN PRN Reason: Nausea and Vomiting Sodium Chloride (0.9 % Sodium Chloride Flush 3 Ml Syringe) 3 ml IVFLUSH [facility] Last Admin: 01/21/24 01:00 Dose: 3 ml Documented By: MT Zolpidem Tartrate (Zolpidem Tartrate 5 Mg Tablet) 5 mg PO BEDTIME PRN PRN Reason: Insomnia Labs 01/20/24 11:50 01/21/24 04:53 Labs: Laboratory Results - last 24 hr 01/20/24 01/20/24 01/21/24 11:50 13:18 04:53 MCV 86.4 MCH 29.2 MCHC 33.7 RDW 13.2 Plt Count 321 D MPV 9.7 Immature Gran % (Auto) 0.3 Neut % (Auto) 78.0 H Lymph % (Auto) 14.2 L [place] % (Auto) 6.7 Eos % (Auto) 0.5 Baso % (Auto) 0.3 Lymph # (Auto) 1.5 [place] # (Auto) 0.7 Eos # (Auto) 0.1 Baso # (Auto) 0.0 Abs Immat Gran (auto) 0.03 Absolute Neuts (auto) 8.1 Absolute Nucleated RBC 0.000 Nucleated RBC % (auto) 0.0 ESR 28 H Anion Gap 11 L 13 Estim Creat Clear Calc 97.6 96.5 Estimated GFR > 60 > 60 Random Glucose 112 127 H Lactic Acid 0.7 Calcium 9.9 8.9 D Magnesium 2.3 C-Reactive Protein 5.98 H Urine Color Yellow Urine Appearance Clear Urine pH 6.5 Ur Specific [place] <= 1.005 Urine Protein Negative Urine Glucose (UA) Negative Urine Ketones Negative Urine Blood Negative Urine Nitrite Negative Ur Leukocyte Esterase Negative Urine Opiates Screen POSITIVE H Ur Buprenorphine Scrn Not Detected Ur Oxycodone Screen Not Detected Urine Methadone Screen Not Detected Urine Fentanyl Screen POSITIVE H Ur Barbiturates Screen Not Detected Ur Phencyclidine Scrn Not Detected Ur Amphetamines Screen Not Detected U Benzodiazepines Scrn Not Detected Urine Cocaine Screen POSITIVE H U Marijuana (THC) Screen Not Detected Ethyl Alcohol < 10 Microbiology Microbiology Results: Microbiology 01/20/24 11:50 Blood Culture - Preliminary Blood - Venous Prelim: GPC Gram Stain only Assessment and Plan (1) Bacteremia: Status: Acute (2) Polysubstance abuse: Status: Acute Plan Pt is a 48-year-old male with a PMH significant for?polysubstance use disorder, IVDU, and mood disorder not currently on home meds who presents to the ED for bacteremia. Pt will be admitted to the hospital for treatment and further evaluation of bacteremia requiring IV antibiotics. Bacteremia 2/2 blood cultures from 01/14 positive for Streptococcus mutans Likely secondary to IVDU No sepsis vancomycin and Zosyn, started 01/20/2024 Echocardiogram ID consult Repeat blood cultures Lower back pain Ongoing x7 days, rates 01/14 without pain med/drugs Unclear etiology: No reported fall, trauma MRI of spine negative for epidural abscess or acute abnormality; multilevel degenerative changes without significant spinal canal stenosis Analgesics for pain management PT consult Polysubstance use disorder IVDU of cocaine and heroin Last used just prior to hospital presentation Previously on Suboxone 12 mg Monitor on COWS Addiction medicine consult> wants suboxone Full Code Attending:?Dr. Cisneros DVT Prophylaxis: Lovenox Quality Stroke Does the patient have a stroke diagnosis?: No VTE Prior VTE?: No VTE Risk Level:: Medical - moderate - high VTE Device Contraindication: Treatment Not Indicated VTE Drug Contraindication: N/A - Med Ordered
[2024-01-21 09:28] VITALS: BP 134/88; PULSE 80; RESP 17; TEMP 37.3; O2SAT 98
[2024-01-21] MEDS: oxyCODONE HCl Immed Release 5 MG TABLET 10 MG PO (10:26)
[2024-01-21 12:12] VITALS: BP 141/89; PULSE 68; RESP 20; TEMP 36.4; O2SAT 97
--- NOTE | 2024-01-21 12:25 | HO.ADDICTCON ---
History of Present Illness Date of Service: 01/21/24 Chief Complaint: Bacteremia Reason for Consult: OUD Additional Sources of Information: Patient medically admitted with bacteremia Reporting opiate use, with acute withdrawal sx Seen by acute care nursing assistant, declining methadone Seen by this commercial underwriter in Overflow Bed 5 Very drowsy, but with some prompting able to wake enough to answer questions He reports he had been taking Suboxone 16mg daily for some time and last dose was on Friday (9 days ago) Since then he reports using apprx a bundle of fentanyl daily Discussed challenges with starting buprenorphine while receiving oxycodone, patient verbalized understaning Initially requesting to have bupe ordered I will be fine, trust me , however t/w declined due to risk of precipitated withdrawal Asked if he would be willing to hold on any further oxycodone doses and he was agreeable While he was drowsy, he was noted to be restless with myclonus Review of Systems Constitutional: Reports as per HPI Diagnostics Vital Signs (24Hr): Vital Signs - 24 hr 01/20/24 19:08 01/20/24 20:06 01/20/24 22:50 Temperature 98.5 F 98.7 F 98.5 F Pulse Rate 90 83 77 Respiratory Rate 16 16 16 Blood Pressure 128/86 150/94 H 151/93 H Pulse Oximetry 98 98 98 Oxygen Delivery Method Room Air Room Air Room Air 01/21/24 01:36 01/21/24 06:23 01/21/24 09:28 Temperature 98.0 F 98.0 F 99.2 F Pulse Rate 72 64 80 Respiratory Rate 18 18 17 Blood Pressure 153/91 H 147/94 H 134/88 Pulse Oximetry 98 98 98 Oxygen Delivery Method Room Air Room Air Room Air 01/21/24 12:12 Temperature 97.6 F Pulse Rate 68 Respiratory Rate 20 Blood Pressure 141/89 H Pulse Oximetry 97 Oxygen Delivery Method Room Air BMI result Body Mass Index 22.7 Labs 01/20/24 11:50 01/21/24 04:53 Labs: Laboratory Results - last 48 hr 01/20/24 01/20/24 01/21/24 11:50 13:18 04:53 WBC 10.3 RBC 4.87 Hgb 14.2 Hct 42.1 MCV 86.4 MCH 29.2 MCHC 33.7 RDW 13.2 Plt Count 321 D MPV 9.7 Immature Gran % (Auto) 0.3 Neut % (Auto) 78.0 H Lymph % (Auto) 14.2 L [place] % (Auto) 6.7 Eos % (Auto) 0.5 Baso % (Auto) 0.3 Lymph # (Auto) 1.5 [place] # (Auto) 0.7 Eos # (Auto) 0.1 Baso # (Auto) 0.0 Abs Immat Gran (auto) 0.03 Absolute Neuts (auto) 8.1 Absolute Nucleated RBC 0.000 Nucleated RBC % (auto) 0.0 ESR 28 H Sodium 134 L 137 Potassium 5.0 4.1 Chloride 98 104 Carbon Dioxide 30 H 24 Anion Gap 11 L 13 BUN 13 16 Creatinine 0.87 0.88 Estim Creat Clear Calc 97.6 96.5 Estimated GFR > 60 > 60 Random Glucose 112 127 H Lactic Acid 0.7 Calcium 9.9 8.9 D Magnesium 2.3 C-Reactive Protein 5.98 H Urine Color Yellow Urine Appearance Clear Urine pH 6.5 Ur Specific [place] <= 1.005 Urine Protein Negative Urine Glucose (UA) Negative Urine Ketones Negative Urine Blood Negative Urine Nitrite Negative Ur Leukocyte Esterase Negative Urine Opiates Screen POSITIVE H Ur Buprenorphine Scrn Not Detected Ur Oxycodone Screen Not Detected Urine Methadone Screen Not Detected Urine Fentanyl Screen POSITIVE H Ur Barbiturates Screen Not Detected Ur Phencyclidine Scrn Not Detected Ur Amphetamines Screen Not Detected U Benzodiazepines Scrn Not Detected Urine Cocaine Screen POSITIVE H U Marijuana (THC) Screen Not Detected Ethyl Alcohol < 10 Imaging Radiology Impressions: ITS Impressions Chest X-Ray 01/20/24 11:20 IMPRESSION: No acute cardiopulmonary disease. Electronically signed by: Kareem Stiles MD 01/20/2024 12:14 PM EDT Lumbar Spine MRI 01/20/24 12:48 IMPRESSION: 1. No evidence of epidural abscess or other acute abnormality of the lumbar spine. 2. Multilevel degenerative changes of the lumbar spine without significant spinal canal stenosis. Mild bilateral neural foraminal narrowing from L3-L4 to L5-S1 with the disc abutting the exiting L3 through L5 nerve roots bilaterally. Electronically signed by: Varun Mcneil MD 01/20/2024 05:29 PM EDT RP Mental Status Exam Mental Status Exam Level of Consciousness: Drowsy Patient Behavior: Appropriate Mood Description: Flat Affect Description: Flat Speech Pattern: Clear Medications Medications Current Medications Acetaminophen (Acetaminophen 325 Mg Tablet) 650 mg PO Q6H [facility] Last Admin: 01/21/24 10:13 Dose: 650 mg Benzonatate (Benzonatate 100 Mg Capsule) 100 mg PO TID PRN PRN Reason: Cough Calcium Carbonate (Calcium Carbonate 750 Mg Tab.Chew) 750 mg PO Q4H PRN PRN Reason: Heartburn Cyclobenzaprine HCl (Cyclobenzaprine Hcl 10 Mg Tablet) 10 mg PO TID PRN PRN Reason: Muscle Spasm Dicyclomine HCl (Dicyclomine Hcl 10 Mg Capsule) 10 mg PO Q6H PRN PRN Reason: abdominal cramping Enoxaparin Sodium (Enoxaparin Sodium 40 Mg/0.4 Ml Syringe) 40 mg SUBCUT Q24H [facility] Last Admin: 01/20/24 22:17 Dose: 40 mg Piperacillin Sod/Tazobactam (Sod 3.375 gm/ Sodium Chloride) 50 mls @ 100 mls/hr IV Q6H [facility] Last Infusion: 01/21/24 11:35 Dose: Infused Vancomycin HCl 1,000 mg/ (Sodium Chloride) 270 mls @ 270 mls/hr IV Q12H [facility] Last Infusion: 01/21/24 04:02 Dose: Infused Loperamide HCl (Loperamide Hcl 2 Mg Capsule) 4 mg PO Q6H PRN PRN Reason: Diarrhea Magnesium Hydroxide (Milk Of Magnesia 30 Ml Oral.Susp) 30 ml PO DAILY PRN PRN Reason: Constipation Ondansetron HCl (Ondansetron Hcl 4 Mg/2 Ml Vial) 4 mg IVPUSH Q8H PRN PRN Reason: Nausea and Vomiting Oxycodone HCl (Oxycodone Hcl Immed Release 5 Mg Tablet) 10 mg PO Q4H PRN PRN Reason: Pain, Severe (Pain Scale 7-10) Last Admin: 01/21/24 10:26 Dose: 10 mg Pharmacy Consult (Consult Rx Vancomycin Dosing) 1 each MISCELLANE DAILY PRN PRN Reason: Consult order Prochlorperazine Edisylate (Prochlorperazine Edisylate 10 Mg/2 Ml Vial) 10 mg IVPUSH Q6H PRN PRN Reason: Nausea and Vomiting Sodium Chloride (0.9 % Sodium Chloride Flush 3 Ml Syringe) 3 ml IVFLUSH [facility]SHIFT [facility] Last Admin: 01/21/24 10:14 Dose: 3 ml Zolpidem Tartrate (Zolpidem Tartrate 5 Mg Tablet) 5 mg PO BEDTIME PRN PRN Reason: Insomnia Allergies Allergies Allergy/AdvReac Type Severity Reaction Status Date / Time diphenhydramine Allergy Itching Verified 01/20/24 10:37 [From Angel] Assessment & Plan Assessment & Plan (1) Opioid use disorder: Status: Acute Code(s): F11.90 - Opioid use, unspecified, uncomplicated Assessment and Plan: patient would like to resume buprenorphine --not interested in methadone hold oxycodone continue comfort meds suboxone 16mg later this afternoon/early evening (COWS >12) should be in moderate withdrawal, with visible signs may repeat one 8mg dose if needed 45 mins after 16mg dose daily dosing should be 16mg daily as he was outpatient Total time managing care of this patient today ____ minutes. PMFSH Past Medical History Medical History Polysubstance abuse Social History Social History Household Members: None Housing: Homeless Do you presently have visiting nurse or other home services: No Alcohol intake: current Patient Tobacco Use Status: Current everyday Tobacco user Tobacco use type: Cigarette Substance Use Type: Heroin service: No
--- NOTE | 2024-01-21 12:30 | PC.NURSE ---
Addendum entered by Marnie Jo RN 01/21/24 13:03: Pt more alert at this time, able to answer most admission questions, and eating lunch. Original Note: Pt arrived to unit from ED overflow. At time of arrival pt appears lethargic, answering occasionally with one word answers, then falls back to sleep immediately. Anu Avelar made aware. New orders for narcan ordered as precautionary measures. Vital signs stable at this time, see flow sheet for values. Camera in room for safety, all fall risk interventions in place.
[2024-01-21 12:54] VITALS: BMI 25.2
[2024-01-21 14:13] LABS: Vancomycin Random 5.4 mcg/mL (15-20)
--- NOTE | 2024-01-21 14:26 | HE.PHANOTE ---
Re: [place] Stable renal function. Trough returned low, sub-therapeutic. Dose increased to 1,000 mg q8h, predicted AUC 455, predicted trough 11. Next trough 01/21 @1200.
[2024-01-21 15:10] VITALS: BP 156/97; PULSE 83; RESP 18; TEMP 37.2; O2SAT 98
--- NOTE | 2024-01-21 15:28 | MHC.CM.PN ---
Addendum entered by Kristi Mcqueen 01/21/24 15:36: 413 Resource guide given to pt. Original Note: This CM met with pt with the assistance of a mailmaster. Pt reports he is homeless and living on the streets. DCP TBD, pt may need assistance with transport and/or a chcf as discharge. No HCP, declined at this time. PCP: Walter JACKSON
--- NOTE | 2024-01-21 15:33 | PC.NURSE ---
Sister at bedside brought in pt belongings. Pt allowed this RN to do a new inventory of belongings, 3 shirts, 3 PJ pants, 1 blanket, and snacks. Sister was noted to have 1 film of Suboxone included with belongings. This RN asked family to please bring home medication. Family and pt educated that all medication should be given through RN and scanned into MAR for safety. Pt and Sister verbalize understanding, Sister states she will take medication home.
[2024-01-21 19:17] VITALS: BP 145/89; PULSE 76; RESP 18; TEMP 36.9; O2SAT 97
[2024-01-21] MEDS: Cyclobenzaprine HCl 10 MG TABLET PO (19:55)
[2024-01-21] MEDS: traMADoL HCL 50 MG TABLET PO (22:54)
[2024-01-21] MEDS: Enoxaparin Sodium 40 MG/0.4 ML SYRINGE SUBCUT (22:54)
[2024-01-22] MEDS: Dicyclomine HCl 10 MG CAPSULE PO ×2 (01:17→22:15)
[2024-01-22 03:23] VITALS: BP 140/88; PULSE 78; RESP 18; TEMP 37; O2SAT 97
[2024-01-22 03:34] VITALS: PULSE 78
[2024-01-22] MEDS: Piperacillin Sodium/Tazobactam 3.375 GM in 0.9 % Sodium Chloride 50 ML IV (04:09)
[2024-01-22] MEDS: Acetaminophen 325 MG TABLET 650 MG PO ×4 (04:40→22:15)
[2024-01-22] MEDS: vancomycin HCL 1,000 MG in 0.9 % Sodium Chloride 250 ML 270 MG IV (06:30)
[2024-01-22 06:45] LABS: Creatinine Clr Calc Pharmacy 99.2; Estimated Glomerular Filt Rate > 60
[2024-01-22 07:52] VITALS: BP 160/98; PULSE 81; RESP 16; TEMP 36.6; O2SAT 98
[2024-01-22] MEDS: cefTRIAXone sodium 2 GM VIAL IVPUSH (08:17)
[2024-01-22] MEDS: 0.9 % Sodium Chloride Flush 3 ML SYRINGE IVFLUSH ×2 (08:26→15:32)
--- NOTE | 2024-01-22 10:22 | MHC.CM.PN ---
Addendum entered by Kimberlyn Wakefield 01/22/24 12:02: [facility] IS OFFERING IF PT REQUIRES IV ABX, PENDING MDS, PRESCRITIONS FOR SUBOXONE AND ANY NARCOTICS AND A LESS THAN 30 IN DCS Original Note: PER MD ROUNDS, ID CONSULT PENDING, PT MAY NEED LT IV ABX REFERRALS MADE TO SNFS PT IS HOMELESS
[2024-01-22] MEDS: Buprenorphine HCL 8 MG TAB.SUBL 16 MG SUBLINGUAL (10:52)
--- NOTE | 2024-01-22 13:31 | MHC.RECOVRN ---
Met with pt prior to buprenorphine administration earlier this morning. Pt laying in bed, eyes closed, easily wakes to voice. Pt reported difficulty sleeping, back pain, body aches, nausea, loose stool, appeared slightly diaphoretic and restless. Pt requesting bupe start. Pt aware of plan regarding initiation. Denies questions or concerns for t/w. Spoke with pts RN, requested medication be administered. Lorelei Penaloza APRN, notified.
[2024-01-22 15:10] VITALS: BP 141/92; PULSE 71; RESP 20; TEMP 36.6; O2SAT 98
--- NOTE | 2024-01-22 15:39 | MHC.RECOVRN ---
Met with pt following buprenorphine administration, pt tolerated well. Pt up in chair playing games on his phone. Appears much brighter, no diaphoresis, no restlessness. Grateful to have restarted. Would like to connect with the [facility] to continue treatment. Discussed with Lorelei Penaloza APRN.
--- NOTE | 2024-01-22 16:03 | HO.PM.IMPN ---
Subjective Subjective Date of Service: 01/22/24 Interval History: Seen and examined this morning Follow-up for bacteremia no specific complaints at this time. no fever, chills; sob, cough, abdominal pain Review of Systems Review of Systems: Yes all other systems are reviewed and are negative Constitutional Constitutional: Denies chills and Denies fever(s) ENT Ears, Nose, Mouth, and Throat: Denies dizziness Cardiovascular Cardiovascular: Denies chest pain, Denies palpitations and Denies dyspnea Respiratory Respiratory: Denies cough and Denies dyspnea Neurologic Neurologic: Denies dizziness Endocrine Endocrine: Denies palpitations Physical Exam Vital Signs: Vital Signs: Last Vital Signs Temp 97.9 F 01/22/24 15:10 Pulse 71 01/22/24 15:10 Resp 20 01/22/24 15:10 BP 141/92 H 01/22/24 15:10 Pulse Ox 98 01/22/24 15:10 O2 Del Method Room Air 01/22/24 15:10 BMI result Body Mass Index 25.2 Const: General: cooperative, comfortable, no acute distress, alert and awake Nutritional Appearance: average body habitus Orientation/consciousness: patient oriented x3 Resp: Effort & Inspection: normal respiratory effort, able to speak in complete sentences, no respiratory distress and no use of accessory muscles Cardio: Rate: regular rate GI: Inspection: No distended Palpation (GI): Soft to palpation Neuro: General: patient oriented x3, moves all extremities and CN's II-XI intact bilaterally Objective Data Active Medications Acetaminophen (Acetaminophen 325 Mg Tablet) 650 mg PO Q6H [facility] Last Admin: 01/22/24 15:30 Dose: 650 mg Documented By: YAMILETH Benzonatate (Benzonatate 100 Mg Capsule) 100 mg PO TID PRN PRN Reason: Cough Buprenorphine/Naloxone (Buprenorphine/Naloxone 8/2 Mg Film) 2 film SUBLINGUAL DAILY [facility] Calcium Carbonate (Calcium Carbonate 750 Mg Tab.Chew) 750 mg PO Q4H PRN PRN Reason: Heartburn Ceftriaxone Sodium (Ceftriaxone Sodium 2 Gm Vial) 2 gm IVPUSH Q24H [facility] Last Admin: 01/22/24 08:17 Dose: 2 gm Documented By: YAMILETH Cyclobenzaprine HCl (Cyclobenzaprine Hcl 10 Mg Tablet) 10 mg PO TID PRN PRN Reason: Muscle Spasm Last Admin: 01/21/24 19:55 Dose: 10 mg Documented By: TREVON Dicyclomine HCl (Dicyclomine Hcl 10 Mg Capsule) 10 mg PO Q6H PRN PRN Reason: abdominal cramping Last Admin: 01/22/24 01:17 Dose: 10 mg Documented By: TREVON Enoxaparin Sodium (Enoxaparin Sodium 40 Mg/0.4 Ml Syringe) 40 mg SUBCUT Q24H [facility] Last Admin: 01/21/24 22:54 Dose: 40 mg Documented By: TREVON Loperamide HCl (Loperamide Hcl 2 Mg Capsule) 4 mg PO Q6H PRN PRN Reason: Diarrhea Magnesium Hydroxide (Milk Of Magnesia 30 Ml Oral.Susp) 30 ml PO DAILY PRN PRN Reason: Constipation Naloxone HCl (Naloxone Hcl 0.4 Mg/Ml Vial) 0.04 mg IVPUSH Q5M PRN PRN Reason: Respiratory Rate < 10 Ondansetron HCl (Ondansetron Hcl 4 Mg/2 Ml Vial) 4 mg IVPUSH Q8H PRN PRN Reason: Nausea and Vomiting Prochlorperazine Edisylate (Prochlorperazine Edisylate 10 Mg/2 Ml Vial) 10 mg IVPUSH Q6H PRN PRN Reason: Nausea and Vomiting Sodium Chloride (0.9 % Sodium Chloride Flush 3 Ml Syringe) 3 ml IVFLUSH QSHIFT [facility] Last Admin: 01/22/24 15:32 Dose: 3 ml Documented By: YAMILETH Zolpidem Tartrate (Zolpidem Tartrate 5 Mg Tablet) 5 mg PO BEDTIME PRN PRN Reason: Insomnia Labs 01/20/24 11:50 01/22/24 05:12 Labs: Laboratory Results - last 24 hr 01/22/24 05:12 Estim Creat Clear Calc 99.2 Estimated GFR > 60 Microbiology Microbiology Results: Microbiology 01/20/24 11:50 Blood Culture - Preliminary Blood - Venous No growth after 48 hours. 01/20/24 11:50 Blood Culture - Final Blood - Venous Streptococcus viridans group Assessment and Plan (1) Bacteremia: Status: Acute Plan Pt is a 48-year-old male with a PMH significant for?polysubstance use disorder, IVDU, and mood disorder not currently on home meds who presents to the ED for bacteremia. Pt will be admitted to the hospital for treatment and further evaluation of bacteremia requiring IV antibiotics. Bacteremia 2/2 blood cultures from 01/14 positive for Streptococcus mutans vancomycin and Zosyn, started 01/20/2024 - will transition to IV ceftriaxone surveillance blood cultures pending Echocardiogram negative for IE ID consult pending Lower back pain Ongoing x7 days, rates 01/14 without pain med/drugs Unclear etiology: No reported fall, trauma MRI of spine negative for epidural abscess or acute abnormality; multilevel degenerative changes without significant spinal canal stenosis Seen by Physical therapy, independent with functional mobility, no gait deviation-discharged from inpatient PT can consider outpatient PT if pain persists Polysubstance use disorder IVDU of cocaine and heroin Last used just prior to hospital presentation Previously on Suboxone 12 mg Monitor on COWS Addiction medicine consult> restarted on suboxone Full Code Attending:?Dr. Cisneros DVT Prophylaxis: Lovenox Requires ongoing inpatient stay for management of bacteremia requiring IV antibiotics and specialist evaluation Quality Stroke Does the patient have a stroke diagnosis?: No VTE Prior VTE?: No VTE Risk Level:: Medical - moderate - high VTE Device Contraindication: Treatment Not Indicated VTE Drug Contraindication: N/A - Med Ordered
[2024-01-22 19:15] VITALS: BP 153/93; PULSE 74; RESP 20; TEMP 36.5; O2SAT 98
[2024-01-22] MEDS: Enoxaparin Sodium 40 MG/0.4 ML SYRINGE SUBCUT (22:15)
[2024-01-23 03:01] VITALS: BP 137/79; PULSE 77; RESP 16; TEMP 36.4; O2SAT 99
[2024-01-23] MEDS: Acetaminophen 325 MG TABLET 650 MG PO ×4 (04:33→21:51)
[2024-01-23 07:45] VITALS: BP 138/91; PULSE 78; RESP 16; TEMP 36; O2SAT 99
[2024-01-23] MEDS: Buprenorphine/Naloxone 8/2 mg FILM 2 FILM SUBLINGUAL (08:55)
[2024-01-23] MEDS: 0.9 % Sodium Chloride Flush 3 ML SYRINGE IVFLUSH ×4 (08:58→21:50)
[2024-01-23] MEDS: cefTRIAXone sodium 2 GM VIAL IVPUSH (08:59)
--- NOTE | 2024-01-23 11:06 | MHC.RECOVRN ---
Met with pt to check in and provide support. Pt awake, alert, easily engages in conversation. Reports everything is going well except for persistent back pain. Reports he slept well and is eating well. Denies questions or concerns for t/w. Discussed with Lorelei Penaloza APRN.
--- NOTE | 2024-01-23 13:42 | MHC.CM.PN ---
PER ROUNDS PT NOT READY FOR DC .PT TO HAVE AN ID CONSULT
--- NOTE | 2024-01-23 15:05 | P.PNIM_ITS ---
Subjective Subjective Date of Service: 01/23/24 Interval History: seen and examined this morning follow up for bacteremia having lower back pain, improved with abdominal binder Review of Systems Review of Systems: Yes all other systems are reviewed and are negative Constitutional Constitutional: Denies chills and Denies fever(s) Cardiovascular Cardiovascular: Denies chest pain, Denies palpitations and Denies dyspnea Respiratory Respiratory: Denies cough and Denies dyspnea Gastrointestinal Gastrointestinal: Denies abdominal pain, Denies nausea and Denies vomiting Endocrine Endocrine: Denies palpitations Physical Exam 2 Vital Signs: Vital Signs: Last Vital Signs Temp 96.8 F 01/23/24 07:45 Pulse 78 01/23/24 07:45 Resp 16 01/23/24 07:45 BP 138/91 H 01/23/24 07:45 Pulse Ox 99 01/23/24 07:45 O2 Del Method Room Air 01/23/24 07:45 BMI result Body Mass Index 25.2 Const: General: cooperative, comfortable, no acute distress, alert and awake Nutritional Appearance: average body habitus Orientation/consciousness: p atient oriented x3 Resp: Effort & Inspection: normal respiratory effort, able to speak in complete sentences, no respiratory distress and no use of accessory muscles Cardio: Rate: regular rate GI: Inspection: No distended Palpation (GI): Soft to palpation Neuro: General: patient oriented x3, moves all extremities and CN's II-XI intact bilaterally Objective Data Active Medications Acetaminophen (Acetaminophen 325 Mg Tablet) 650 mg PO Q6H [facility] Last Admin: 01/23/24 10:34 Dose: 650 mg Documented By: YAMILETH Benzonatate (Benzonatate 100 Mg Capsule) 100 mg PO TID PRN PRN Reason: Cough Buprenorphine/Naloxone (Buprenorphine/Naloxone 8/2 Mg Film) 2 film SUBLINGUAL DAILY [facility] Last Admin: 01/23/24 08:55 Dose: 2 film Documented By: YAMILETH Calcium Carbonate (Calcium Carbonate 750 Mg Tab.Chew) 750 mg PO Q4H PRN PRN Reason: Heartburn Ceftriaxone Sodium (Ceftriaxone Sodium 2 Gm Vial) 2 gm IVPUSH Q24H [facility] Last Admin: 01/23/24 08:59 Dose: 2 gm Documented By: YAMILETH Cyclobenzaprine HCl (Cyclobenzaprine Hcl 10 Mg Tablet) 10 mg PO TID PRN PRN Reason: Muscle Spasm Last Admin: 01/21/24 19:55 Dose: 10 mg Documented By: TREVON Dicyclomine HCl (Dicyclomine Hcl 10 Mg Capsule) 10 mg PO Q6H PRN PRN Reason: abdominal cramping Last Admin: 01/22/24 22:15 Dose: 10 mg Documented By: TREVON Enoxaparin Sodium (Enoxaparin Sodium 40 Mg/0.4 Ml Syringe) 40 mg SUBCUT Q24H [facility] Last Admin: 01/22/24 22:15 Dose: 40 mg Documented By: TREVON Loperamide HCl (Loperamide Hcl 2 Mg Capsule) 4 mg PO Q6H PRN PRN Reason: Diarrhea Magnesium Hydroxide (Milk Of Magnesia 30 Ml Oral.Susp) 30 ml PO DAILY PRN PRN Reason: Constipation Naloxone HCl (Naloxone Hcl 0.4 Mg/Ml Vial) 0.04 mg IVPUSH Q5M PRN PRN Reason: Respiratory Rate < 10 Ondansetron HCl (Ondansetron Hcl 4 Mg/2 Ml Vial) 4 mg IVPUSH Q8H PRN PRN Reason: Nausea and Vomiting Prochlorperazine Edisylate (Prochlorperazine Edisylate 10 Mg/2 Ml Vial) 10 mg IVPUSH Q6H PRN PRN Reason: Nausea and Vomiting Sodium Chloride (0.9 % Sodium Chloride Flush 3 Ml Syringe) 3 ml IVFLUSH QSHIFT [facility] Last Admin: 01/23/24 08:58 Dose: 3 ml Documented By: YAMILETH Zolpidem Tartrate (Zolpidem Tartrate 5 Mg Tablet) 5 mg PO BEDTIME PRN PRN Reason: Insomnia Labs 01/20/24 11:50 01/22/24 05:12 Microbiology Microbiology Results: Microbiology 01/22/24 09:23 Blood Culture - Preliminary Blood - Venous No growth after 24 hours. 01/22/24 09:22 Blood Culture - Preliminary Blood - Venous No growth after 24 hours. 01/20/24 11:50 Blood Culture - Preliminary Blood - Venous No growth after 48 hours. 01/20/24 11:50 Blood Culture - Final Blood - Venous Streptococcus viridans group Assessment and Plan (1) Bacteremia: Status: Acute Plan Pt is a 48-year-old male with a PMH significant for?polysubstance use disorder, IVDU, and mood disorder not currently on home meds who presents to the ED for bacteremia. Pt will be admitted to the hospital for treatment and further evaluation of bacteremia requiring IV antibiotics. Bacteremia 2/2 blood cultures from 01/14 positive for Streptococcus mutans, follow up 1/ strep viridans group; / cultures negative at 24 hours. possible discharge with two weeks of zyvox vancomycin and Zosyn, started 01/20/2024 - transitioned to IV ceftriaxone surveillance blood cultures pending Echocardiogram negative for IE ID following ? skin source Lower back pain MRI of spine negative for epidural abscess or acute abnormality; multilevel degenerative changes without significant spinal canal stenosis, disc bulge at multiple levels Seen by Physical therapy, independent with functional mobility, no gait deviation-discharged from inpatient PT can consider outpatient PT if pain persists Polysubstance use disorder IVDU of cocaine and heroin Last used just prior to hospital presentation Previously on Suboxone 12 mg Monitor on COWS Addiction medicine consult> restarted on suboxone Full Code DVT Prophylaxis: Lovenox Requires ongoing inpatient stay for management of bacteremia requiring IV antibiotics and specialist evaluation Quality Stroke Does the patient have a stroke diagnosis?: No VTE Prior VTE?: No VTE Risk Level:: Medical - moderate - high VTE Device Contraindication: Treatment Not Indicated VTE Drug Contraindication: N/A - Med Ordered
[2024-01-23 16:00] VITALS: BP 139/97; PULSE 78; RESP 16; TEMP 36.4; O2SAT 99
[2024-01-23 19:47] VITALS: BP 149/83; PULSE 75; RESP 18; TEMP 36.3; O2SAT 99
[2024-01-23] MEDS: Calcium Carbonate 750 MG TAB.CHEW PO (21:50)
[2024-01-23] MEDS: Cyclobenzaprine HCl 10 MG TABLET PO (21:50)
[2024-01-23] MEDS: Enoxaparin Sodium 40 MG/0.4 ML SYRINGE SUBCUT (21:50)
[2024-01-24 03:37] VITALS: BP 152/89; PULSE 67; RESP 16; TEMP 36.3; O2SAT 99
[2024-01-24] MEDS: Acetaminophen 325 MG TABLET 650 MG PO ×2 (03:49→09:48)
[2024-01-24 07:10] VITALS: BP 147/78; PULSE 69; RESP 16; TEMP 36.6; O2SAT 98
[2024-01-24] MEDS: Cyclobenzaprine HCl 10 MG TABLET PO (07:49)
[2024-01-24] MEDS: Buprenorphine/Naloxone 8/2 mg FILM 2 FILM SUBLINGUAL (07:49)
[2024-01-24] MEDS: 0.9 % Sodium Chloride Flush 3 ML SYRINGE IVFLUSH (07:49)
[2024-01-24] MEDS: cefTRIAXone sodium 2 GM VIAL IVPUSH (07:49)
[2024-01-24] MEDS: oxyCODONE HCl Immed Release 5 MG TABLET PO (10:18)
--- NOTE | 2024-01-24 11:00 | P.DS_ITS ---
DS: Providers Provider Date of Service: 01/24/24 Date of admission: 01/20/24 21:43 Date of discharge: 01/24/24 Primary care physician: Unknown Physician Consults: 01/20/24 21:41 Addiction Medicine Routine Consulting Provider: Addiction Covering Reason for consultation: Heroin and cocaine IVDU 01/20/24 21:42 Consult to Infectious Diseases Routine Consulting Provider: [facility] Reason for consultation: Bacteremia, IVDU Attending physician on discharge: Sandeep Dumont Discharging clinician: Maria R Ochoa DS: Diagnosis Discharge Diagnosis (1) Bacteremia: Status: Acute DS: Summary Hospital Course Hospital Course: From H&P on the day of admission Pt is a 48-year-old male with a PMH significant for?polysubstance use disorder, IVDU, and mood disorder not currently on home meds who presents to the ED for bacteremia. Patient initially presented to the ED on 01/16/2024 complaining of 10 atraumatic lumbar back pain. Workup at that time was negative, including reassuring labs and negative CT of lumbar spine. Patient was discharged home on ketorolac, cyclobenzaprine, and acetaminophen. However, 2/2 blood cultures came back positive for Streptococcus mutans susceptible to ceftriaxone and vancomycin. Phone call was left for patient's sister who eventually was able to contact him and told him to go back to the ED. Patient himself currently continues to complain of lower back pain and difficulty ambulating. Describes pain as a ?burning sensation? that is worse with movement and ambulation, and alleviated ?when I have drugs in my system . Unclear etiology: pt denies any fall or trauma to the area. Reports just started hurting seven days ago. Patient denies numbness or tingling in extremities. No saddle anesthesia. Denies any changes to bowel or bladder habits. Denies fever, chills, nausea, vomiting, abdominal pain. No chest pain/pressure, palpitations. Denies shortness or breath or difficulty breathing. In the ED pt was mildly hypertensive at 150/94, vitals otherwise stable and WNL. Labs were significant for elevated ESR of 28, CRP 5.98, and sodium 134. No leukocytosis. Stable H&H. Renal function baseline. UA negative for UTI. Tox screen positive for opiates, fentanyl, and cocaine. CXR showed no acute cardiopulmonary disease. MRI of lumbar spine showed no evidence of epidural abscess or acute abnormality. Did show multilevel degenerative changes of lumbar spine without significant stenosis. EKG demonstrated normal sinus rhythm without evidence of significant ST elevations or depressions. Pt was treated with vancomycin, Zosyn, and ketorolac. Pt will be admitted to the hospital for treatment and further evaluation of bacteremia requiring IV antibiotics. Bacteremia 2/2 blood cultures from 01/14 positive for Streptococcus mutans, follow up 1/ strep viridans group; 01/21 cultures negative at 48 hours vancomycin and Zosyn, started 01/20/2024. Echocardiogram negative for valvular vegetation. Discussed with ID, possible skin source. No recent dental procedure, no mouth infection. Recommend 2 weeks of oral Zyvox from first negative blood cultures. Lower back pain MRI of spine negative for epidural abscess or acute abnormality; multilevel degenerative changes without significant spinal canal stenosis, disc bulge at multiple levels. Seen by Physical therapy, independent with functional mobility, no gait deviation-discharged from inpatient PT can consider outpatient PT if pain persists. Given abdominal binder and flexeril with improvement. No radiation down legs, no bowel or bladder incontinence. Polysubstance use disorder IVDU of cocaine and heroin. Seen by Addiction medicine consult and restarted on suboxone. We will need outpatient follow-up in the comprehensive Care [place]. Time Attestation Discharge Coordination Time (in mins): 36 Quality: Safe Use of Opioids Does Pt have an Active Cancer Diagnosis on the Problem List?: No Quality: Stroke Does the patient have a stroke diagnosis?: No Physical Exam Vital Signs: Vital Signs: Last Vital Signs Temp 97.8 F 01/24/24 07:10 Pulse 69 01/24/24 07:10 Resp 16 01/24/24 07:10 BP 147/78 H 01/24/24 07:10 Pulse Ox 98 01/24/24 07:10 O2 Del Method Nasal Cannula 01/24/24 07:10 BMI result Body Mass Index 25.2 Const: General: cooperative, comfortable, no acute distress, alert and awake Nutritional Appearance: average body habitus Orientation/consciousness: patient oriented x3 Resp: Effort & Inspection: normal respiratory effort, able to speak in complete sentences, no respiratory distress and no use of accessory muscles Cardio: Rate: regular rate GI: Inspection: No distended Palpation (GI): Soft to palpation Back/Spine/Pelvis: Other: paraspinal muscular pain/spasm lumbar area right side Neuro: General: patient oriented x3, moves all extremities and CN's II-XI intact bilaterally DS: Data Data Completed and Pending Labs on day of discharge: Preliminary micro results at discharge 01/22/24 09:23 Blood Culture - Preliminary Blood - Venous No growth after 24 hours. 01/22/24 09:22 Blood Culture - Preliminary Blood - Venous No growth after 24 hours. 01/20/24 11:50 Blood Culture - Preliminary Blood - Venous No growth after 48 hours. Discharge Plan Discharge Anticipated Discharge Date/Time: 01/24/24 12:01 Patient Disposition: Home, Self-Care Discharge Diagnosis: Bacteremia Referrals: Physician,Unknown J [Primary Care Provider] - 1 Week Discharge Medications: New linezolid [Zyvox] 600 mg tablet 600 mg PO Q12H 13 Days Qty: 26 0RF Discharge Orders: Discharge Order (Routine); Ordered 01/24/24 Ordered By: Maria R Ochoa Activity on Discharge: As tolerated Stand Alone Forms: Patient Portal Discharge page Print Language: Arabic Care Plan Goals: See below Health Concerns: Bacteremia IVDU/opioid use disorder Plan of Treatment: Complete course of antibiotics as prescribed for bacteremia You have been restarted on Suboxone, take as [id number] in the comprehensive Care Clinic Call to schedule follow-up appointment with PCP in the next 1-2 weeks For back pain outpatient physical therapy may be beneficial, discuss with PCP Can continue Tylenol, Flexeril as needed Assessment: See discharge summary
== END 2024-01-24 14:32 | disposition home or self-care (01) | DRG 724 ==
LOC: HO.ED 20:25 → HO.EDOVER 21:58 → HO.S3 01-21 09:28
PROVIDERS: Physician Assistant Medical; Admitting Provider Student in an Organized Health Care Education/Training Program; Emergency Provider Emergency Medicine; PCP Registered Nurse; Visit Provider Physician Assistant Medical
DX: R78.81 Bacteremia (principal); B95.4 Other streptococcus as the cause of diseases classified elsewhere; F17.210 Nicotine dependence, cigarettes, uncomplicated; F11.20 Opioid dependence, uncomplicated; F19.10 Other psychoactive substance abuse, uncomplicated; F14.90 Cocaine use, unspecified, uncomplicated; Z59.02 Unsheltered homelessness; Z71.6 Tobacco abuse counseling; F39 Unspecified mood [affective] disorder; M54.50 Low back pain, unspecified
CPT/HCPCS: 36415; 71046; 72158; 80048; 80202; 80307; 81003; 82565; 83605; 83735; 85025; 85652; 86140; 87040; 87205; 93005; 93306; 97161; 99285; A9585; J0571; J0696; J1650; J1885; J2060; J2543; J3370

== ENCOUNTER → 2024-01-20 11:20 | Outpatient (BNV) | payer MEDICAID, SELFPAY | PROVIDERS: Emergency Provider Emergency Medicine; Visit Provider Internal Medicine | DX: R07.9 Chest pain, unspecified (principal) | CPT/HCPCS: 93010 ==

== ENCOUNTER 2024-01-20 21:43 | Outpatient (BNV) | payer MEDICAID, SELFPAY | END 2024-01-21 07:00 | PROVIDERS: Admitting Provider Student in an Organized Health Care Education/Training Program; Emergency Provider Emergency Medicine; Visit Provider Internal Medicine | DX: I36.1 Nonrheumatic tricuspid (valve) insufficiency (principal) | CPT/HCPCS: 93306 ==

== ENCOUNTER → 2024-01-20 21:43 | Outpatient (BNV) | payer MEDICAID, SELFPAY | PROVIDERS: Admitting Provider Student in an Organized Health Care Education/Training Program; Emergency Provider Emergency Medicine; Visit Provider Nurse Practitioner Psychiatric/Mental Health | DX: F11.90 Opioid use, unspecified, uncomplicated (principal) | CPT/HCPCS: 99222 ==

== ENCOUNTER → 2024-01-20 21:43 | Outpatient (BNV) | payer MEDICAID, SELFPAY | PROVIDERS: Admitting Provider Student in an Organized Health Care Education/Training Program; Emergency Provider Emergency Medicine; Visit Provider Student in an Organized Health Care Education/Training Program | DX: R78.81 Bacteremia (principal); F19.10 Other psychoactive substance abuse, uncomplicated | CPT/HCPCS: 99223; 99232; 99233; 99239 ==

== ENCOUNTER 2024-05-19 17:17 | Emergency (ER) | payer MEDICAID, SELFPAY ==
--- NOTE | ~2024-05-19 | XR_ITS ---
CLINICAL HISTORY: cough 1 view chest x-ray Comparison: None Findings: The lungs are clear. Normal size heart. No acute fracture. IMPRESSION: 1. No acute findings. This document has been electronically signed by: Radha Francsi MD on 05/19/2024 18:30:44
[2024-05-19 17:33] VITALS: BP 170/95; PULSE 74; RESP 20; TEMP 36.9; O2SAT 96; BMI 25.1
--- OUTSIDE RECORDS SUMMARY | 2024-05-19 17:50 | XMS_ITS | Clinical Summary ---
Author Organization [facility] Address [address] [place] [address] Care Team Providers Care Attractions Associate Name Role Phone Walter Hudson LEATHER CRAFTSMAN-[place] Primary Care Provider [phone] Source Comments PLEASE NOTE, if this patient is a minor, it may be UNLAWFUL to discuss sensitive information that is contained in these records (such as FAMILY PLANNING, MENTAL HEALTH or SUBSTANCE ABUSE) with the minor patient's parent or other person without the patient's specific authorization.[facility] Allergies Active Allergy Reactions Criticality Noted Date Comments Diphenhydramine Hcl 11/29/2022 Medications SUBOXONE 12-[address]M BY SUBLINGUAL ROUTE EVERY DAY 3 Active naloxone (NARCAN) 4 mg/actuation nasal sprayIndications: Heroin use disorder, moderate, in sustained remission (HCC-CMS) Place 1 [place] into the nostril(s) as needed for opioid reversal 2 Each 1 3 Active inhalational spacing deviceIndications :Mild intermittent asthma without complication UAD 1 Each 1 3 Active arm brace (WRIST BRACE)Indications :Bilateral carpal tunnel syndrome Apply to bilateral wrist daily 2 Each 1 3 Active gabapentin (NEURONTIN) 300 mg capsuleIndication s:Bilateral carpal tunnel syndrome Take 1 Capsule by mouth 3 (three) times daily 60 Capsule 3 4 Active meloxicam (MOBIC) 7.5 mg tabletIndications :Chronic right hip pain Take 1 Tablet by mouth once daily 30 Tablet 2 4 Active cloNIDine (CATAPRES) 0.1 mg tabletIndications :Bipolar 1 disorder (HCC-CMS),Severe episode of recurrent major depressive disorder, with psychotic features (HCC-CMS) TAKE 1 TABLET BY MOUTH THREE TIMES A DAY NEEDED 270 Tablet 1 4 Active risperiDONE (RISPERDAL) 1 mg tabletIndications :Bipolar 1 disorder (HCC-CMS),Severe episode of recurrent major depressive disorder, with psychotic features (HCC-CMS) TAKE 1 TABLET BY MOUTH EVERYDAY AT BEDTIME 90 Tablet 4 Active citalopram (CELEXA) 20 mg tabletIndications :Bipolar 1 disorder (HCC-CMS),Severe episode of recurrent major depressive disorder, with psychotic features (HCC-CMS) TAKE 1 TABLET BY MOUTH EVERY DAY DIRECTED 90 Tablet 4 Active budesonide-formot Robert (SYMBICORT) 80-4.5 mcg/actuation inhalerIndication s:Mild intermittent asthma without complication INHALE 1 PUFFS EVERY 6 HOURS NEEDED FOR SHORTNESS OF BREATH 30.6 g 1 4 Active Active Problems Problem Noted Date Diagnosed Date Severe episode of recurrent major depressive disorder, with psychotic features ([facility]) 11/29/2022 Overview (11/29/2022): November 2022:Sees [facility] and [facility] PTSD (post-traumatic stress disorder) 11/29/2022 Bipolar 1 disorder ([facility]) 11/29/2022 History of crack cocaine use 11/29/2022 Overview (11/29/2022): Last use 2019 Heroin use disorder, moderat e, in sustained remission ([facility]) 11/29/2022 Overview (11/29/2022): Last use 2017, on suboxone Mild intermittent asthma 11/29/2022 Chronic right hip pain 11/29/2022 Bilateral carpal tunnel syndrome 11/29/2022 History of hepatitis C 11/29/2022 Overview (11/29/2022): Completed treatment per pt Tobacco use disorder 11/29/2022 Migraine without status migrainosus, not intract able 11/29/2022 Immunizations Name Administration Dates Next Due PNEUMOCOCCAL CONJUGATE PCV 20 (Prevnar) 03/04/20 23 TDAP 03/04/2023 Family History Medical History Relation Name Comments HIV/AIDS Father Diabetes Mother Hypertension Mother Colon Cancer Paternal Grandfather Kidney disease Sister ibs Sister Relation Name Status Comments Brother Alive Father Alive Mother Alive Paternal Grandfather Sister Alive Social History Tobacco Use Types Packs/Day Years Used Date Smoking Tobacco: Every Day Cigarettes Smokeless Tobacco: Never Tobacco Cessation:Ready to Q uit: Not Asked; Counseling Given: Yes Alcohol Use Standard Drinks/Week Comments Not Currently 0 (1 standard drink = 0.6 oz pur e alcohol) Social Connections Answer Date Recorded Connectedness 0 11/29/2022 Financial Resource Strain Answer Date R ecorded Financial Resource Strain 0 2022 Stress Answer Date Recorded Stress 0 11/29/2022 Physical Activity Answer Date Recorded Physical Activity 0 09/18/2022 Food Insecurity Answer Date Recorded Food 0 11/29/2022 Transportation Needs Answer Date Record ed Transportation 0 11/29/2022 Housing Stability Answer Date Recorded Housing 0 11/29/2022 Safety and Environment Answer Date Ken rded Safety 0 11/29/2022 Utilities Answer Date Recorded Utilities 0 11/29/2022 Employment Answer Date Recorded Employment 0 09/18/2022 Sex and Gender Information Value Date Recorded Sex Assigned at Male 08/08/2022 12:36 PM PDT Legal Sex Male 12:35 PM PDT Gender Identity Male 08/08/2022 12:36 PM PDT Sexual Orientation Straight 11/29/2022 9: 55 AM PDT Last Filed Vital Signs Vital Sign Reading Time Taken Comments Blood Pressure 120/70 09/09/2023 2:26 PM EDT Pulse 68 09/09/2023 2:26 PM EDT Temperature 37.1 ??C (98.8 ??F) 09/09/2023 2:26 PM ED T Respiratory Rate 16 09/09/2023 2:26 PM EDT Oxygen Saturation 98% 11/29/2022 9:02 AM EDT Inhaled Oxygen Concentration - - Weight 78 kg (172 lb) 09/09/2023 2:26 PM EDT Height 170.2 cm (5' 7 ) 09/09/2023 2:26 PM EDT Body Mass Index 26.94 09/09/2023 2:26 PM EDT Plan of Treatment Health Maintenance Due Date Last Done Comments CT Colonography 2021 Colonoscopy 2021 Colorectal Cancer Screening 2021 FIT/gFOBT 2021 Fecal DNA 2021 Flexible Sigmoidoscopy 2021 Depression Monitoring 09/10/2023 06/10/2023 , 03/04/2023, 11/29/2022 Annual Preventive Care Visit 11/30/2023 11/29/2022 Syphilis Screening 11/30/2023 11/29/2022 [id number] ( season) 2023 021 Imm-Influenza (#1) 2023 Alcohol and Drug Screen 04/07/2024 06/10/2023, 11/29 Diabetes Screening 09/08/2024 09/09/2023, 0 09/09/2023, 06/18/2023, Additional history exists Hypertension Screening (#1) 09/08/2024 Lipid Screening 09/08/2024 09/09/2023, 03/0 08/2023, 11/29/2022 Tobacco Cessation Counseling (#1) 09/08/2024 09/09/2023, 06/10/2023, 03/04/2023, Additional history exists Imm-DTaP/Tdap/Td (2 - Td or Tdap) 03/04/2033 023 HIV Screening Completed 11/29/2022 Imm-Pneumococcal Completed 03/04/2023 Imm-Hepatitis B Discontinued Procedures Procedure Name Priority Date/Time Associated Diagnosis Comments HEMOGLOBIN GLYCOSYLATED A1C Routine 09/09/2023 3:20 PM EDT Routine general medical examination at a health care facility LIPID PANEL Routine 09/09/2023 3:20 PM EDT Routine general medical examination at a health care facility HIV 1/2 AG & AB W/RFLX (4TH GEN) Routine 11/29/2022 10:03 AM EDT Examination, medical, general Heroin use disorder, moderate, in sustained remission (HCC-CMS) SYPHILIS ANTIBODY CASCADING REFLEX Routine 11/29/2022 10:03 AM EDT Examination, medical, general Heroin use disorder, moderate, in sustained remission (HCC-CMS) from Last 3 Months or Most Recently Relevant to Health Maintenance Results * (ABNORMAL) HEMOGLOBIN GLYCOSYLATED A1C (09/09/2023 3:20 PM EDT) Pathologist [facility] HEMOGLOBIN A1C 5.7(H) <5.7 % of total Hgb [facility] Comment: For someone without known diabetes, a hemoglobin A1c value between 5.7% and 6.4% is consistent with prediabetes and should be confirmed with a follow-up test. For someone with known diabetes, a value <7% indicates that their diabetes is well controlled. A1c targets should be individualized based on duration of diabetes, age, comorbid conditions, and other considerations. This assay result is consistent with an increased risk of diabetes. Currently, no consensus exists regarding use of hemoglobin A1c for diagnosis of diabetes for children. Blood Blood / Unknown 09/09/2023 3 :20 PM EDT 09/09/2023 3:21 PM EDT Narrative [facility] - 09/10/2023 10:22 AM EDT FASTING:NO Walter Hudson LEATHER CRAFTSMAN-C LAB - BLOOD DRAW Edited R esult - Final [facility] [address] [place] [id number], [facility] [address] [place] [id number] * (ABNORMAL) LIPID PANEL (09/09/2023 3:20 PM EDT) [facility] CHOLESTEROL, TOTAL 177 <200 mg/dL [facility] HDL CHOLESTEROL 43 > OR = 40 mg/dL [facility] TRIGLYCERIDES 194(H) <150 mg/dL [facility] LDL-CHOLESTEROL 103(H) 99 mg/dL (calc) [facility] Comment: Reference range: <100 Desirable range <100 mg/dL for primary prevention; ?? <70 mg/dL for patients with CHD or diabetic patients with > or = 2 CHD risk factors. LDL-C is now calculated using the [place] calculation, which is a validated novel method providing better accuracy than the Friedewald equation in the estimation of LDL-C. Jairo BOWEN et al. ANNIE. 2013;310(19): 6268-5791 (http://education.[employer]ut.Coridea/faq/LDE089) CHOL/HDLC RATIO 4.1 <5.0 (calc) [facility] NON-HDL CHOLESTEROL 134(H) <130 mg/dL (calc) [facility] Comment: For patients with diabetes plus 1 major ASCVD risk factor, treating to a non-HDL-C goal of <100 mg/dL (LDL-C of <70 mg/dL) is considered a therapeutic option. Blood Blood / Unknown 09/09/2023 3 :20 PM EDT 09/09/2023 3:21 PM EDT Narrative [facility] - 09/10/2023 10:22 AM EDT FASTING:NO Walter Hudson LEATHER CRAFTSMAN-C LAB - BLOOD DRAW Final Re sult Performing Organization Address [facility] de Phone Number Work in [employer] [address] [address], [employer] [address] [phone] * SYPHILIS ANTIBODY CASCADING REFLEX (11/29/2022 10:03 AM EDT) T. PALLIDUM AB, EIA NEGATIVE NEGATIVE [facility] Comment: No antibodies to T. pallidum (the agent causing syphilis) were detected in the specimen. This result, however, does not exclude very recent T. pallidum infection; testing of a second specimen, collected 2-4 weeks after this specimen, is recommended if the index of suspicion for recent infection is high. Blood Blood / Unknown 11/29/2022 1 0:03 AM EDT 11/29/2022 10:04 AM EDT Obinna Ibrahim LEATHER CRAFTSMAN LAB - BLOOD DRAW Edited R esult - Final Performing Organization Address [facility] Co de Phone Number [facility] [address] [address], [employer] [address] [phone] * HIV 1/2 AG & AB W/RFLX (4TH GEN) (11/29/2022 10:03 AM EDT) HIV AG/AB, 4TH GEN NON-REAC TIVE NON-REAC TIVE [employer] in [facility] Comment: HIV-1 antigen and HIV-1/HIV-2 antibodies were not detected. There is no laboratory evidence of HIV infection. PLEASE NOTE: This information has been disclosed to you from records whose confidentiality may be protected by state law. ??If your state requires such protection, then the state law prohibits you from making any further disclosure of the information without the specific written consent of the person to whom it pertains, or as otherwise permitted by law. A general authorization for the release of medical or other information is NOT sufficient for this purpose. ?? For additional information please refer to http://education.[employer] Portals/faq/ELX982 (This link is being provided for informational/ educational purposes only.) The performance of this assay has not been clinically validated in patients less than 2 years old. Blood Blood / Unknown 11/29/2022 1 0:03 AM EDT 11/29/2022 10:04 AM EDT [facility] - BLOOD DRAW Final Re sult Work in [employer] [address] [address], [employer] in [employer] [address] [phone] from Last 3 Months or Most Recently Relevant to Health Maintenance Insurance [employer] Care Teams Attractions Associate Relationship Specialty Start Date End Date Walter Hudson FNP-C [address] [place] [address] PCP - General Internal Medicine 09/27/22
[2024-05-19 18:32] LABS: Influenza A PCR POSITIVE (Negative); Influenza B PCR NEGATIVE (Negative); Resp Syncy Virus RNA Qual PCR NEGATIVE (Negative); SARS COV2 PCR INHOUSE NEGATIVE (Negative)
--- NOTE | 2024-05-19 19:04 | ED_ITS ---
HPI - URI/Sore Throat General Chief Complaint: Upper Respiratory Symptoms Stated Complaint: flu like symptoms Time Seen by Provider: 05/19/24 19:05 Source: patient, RN notes reviewed and old records reviewed Mode of arrival: ambulatory History of Present Illness ED Provider: Delmy Atwood PA-C HPI Narrative: 48-year-old male with a past medical history substance abuse, presenting to the ED complaining of upper respiratory symptoms including cough, headache, fatigue/myalgias and chills x 2 days. Denies CP/SOB, abdominal pain, nausea/vomiting, sick contacts, travel Related Data Previous Rx's ?Medication ?Instructions ?Recorded buprenorphine 8 mg-naloxone 2 mg 2 film buccal DAILY #20 ea 01/24/24 sublingual film (Suboxone) cefuroxime axetil 500 mg tablet 500 mg PO Q12H 14 days #28 tabs 01/24/24 cyclobenzaprine 10 mg tablet 10 mg PO TID PRN muscle spasm #10 01/24/24 tabs oseltamivir 75 mg capsule (Tamiflu) 75 mg PO Q12H 5 days #10 caps 05/19/24 Allergies Allergy/AdvReac Type Severity Reaction Status Date / Time diphenhydramine Allergy Itching Verified 05/19/24 17:34 [From Benadryl] Review of Systems Review of Systems: Yes all other systems are reviewed and are negative Constitutional: Constitutional: Reports as per [facility] Past Medical History Attestation statement: The following information was validated with the patient. Source: old records reviewed Medical History Polysubstance abuse Social History Social History Household Members: None Housing: Homeless Do you presently have visiting nurse or other home services: No Alcohol intake: current Patient Tobacco Use Status: Current everyday Tobacco user Tobacco use type: Cigarette Substance Use Type: Heroin Advance Directives: No Advance Directives Information Provided: No Do you have a plan to hurt others: No Plan service: No Physical Exam Vital Signs: Vital Signs: Last Vital Signs Temp 99.2 F 05/19/24 19:05 Pulse 72 05/19/24 19:05 Resp 20 05/19/24 19:05 BP 160/97 H 05/19/24 19:05 Pulse Ox 99 05/19/24 19:05 O2 Del Method Room Air 05/19/24 19:05 BMI result Body Mass Index 25.1 Const: General: cooperative, healthy appearing and no acute distress Orientation/consciousness: patient oriented x3 Limitations: no limitations HEENT: Head: Yes normal to inspection and Yes atraumatic Ears: hearing grossly normal bilaterally General nose exam: Normal external nose present Face and sinus: Yes normal facial exam Eyes: General: appearance normal, both eyes and all related structures EOM: EOMs intact bilaterally Neck: Neck: Yes normal visual inspection and Yes no meningeal signs Resp: Effort & Inspection: normal respiratory effort and no respiratory distress Auscultation: clear to auscultation bilaterally Cardio: Rate: regular rate Heart sounds: S1 normal heart sound present and S2 normal heart sound present Skin: Rashes: no rashes Wounds: no wounds Neuro: General: patient oriented x3, tone normal and no meningeal signs Cranial nerves: Yes CN's II-XII intact bilaterally Gait exam (Neuro): Normal gait present Extrem: General: Yes normal to inspection Course Course Course Narrative: -1908--influenza a positive -CXR unremarkable > patient is interested in Tamiflu Results discussed with patient including worrisome signs and symptoms and strict return precautions, and when to return to the emergency department. They verbalized understanding and feel safe for discharge at this time. Medical Decision Making Medical Decision Making [facility] Narrative: 48-year-old male with a past medical history substance abuse, presenting to the ED complaining of upper respiratory symptoms including cough, headache, fatigue/myalgias and chills x 2 days. On exam vital signs stable, NAD, nontoxic appearing, lungs CTA, nontoxic appearing. Concern for viral illness. Low suspicion for acute ACS/PE/dissection Plan: Viral testing, CXR Please refer to course for remaining clinical decision making, interpretation of labs/imaging results, and discussions with consultants and/or family members. Differential Diagnosis Differential Diagnoses: The differential diagnosis associated with the presentation includes As above Lab Data [facility] Lab Attestation statement: I reviewed the patient's lab results. Labs: Lab Results 05/19/24 Range/Units 17:45 Influenza Type A (PCR) POSITIVE A (Negative) Influenza Type B (PCR) NEGATIVE (Negative) RSV RNA Qual (PCR) NEGATIVE (Negative) SARS-CoV-2 RNA (RT-PCR) NEGATIVE (Negative) Independent Interpretation I performed an independent interpretation of an: Plain X-Ray Radiology Impression Discussion of test interpretation with radiology: I have reviewed the radiologist's reading. External Record Review External record reviewed: Inpatient record, Office record, Outpatient record, Prior outpatient labs, Prior outpatient radiology, Primary care record and Outside ED record Tests considered The following testing was considered but not selected: As above Prescription Management I considered prescription management with: Pain Medication, Antiviral and Antibiotic Chronic Conditions Patient?s care impacted by: Other Social Determinants Patient?s care significantly limited by Social Determinants of Health including: Other Social Determinant of Health Discharge Plan Discharge Clinical Impression: Influenza Patient Disposition: Home, Self-Care Instructions: Influenza (DC) Additional Instructions: You have the flu No antibiotics are indicated at this time Make sure you are staying hydrated. Drink plenty of fluids. Rest Alternate Tylenol and Motrin at home as needed for body aches and fever Follow-up with your doctor. If symptoms persist or worsen return to the emergency department *If you are a child & not tolerating liquid or urinating for more than 6 hours, or fevers are uncontrolled with medications at home, return to the emergency department* Prescriptions: New oseltamivir [Tamiflu] 75 mg capsule 75 mg PO Q12H 5 Days Qty: 10 0RF No Action buprenorphine-naloxone [Suboxone] 8-2 mg film 2 film buccal DAILY Qty: 20 0RF Rx Instructions: place 1 film on inside of (each) cheek cefuroxime axetil 500 mg tablet 500 mg PO Q12H 14 Days Qty: 28 0RF cyclobenzaprine 10 mg tablet 10 mg PO TID PRN (Reason: muscle spasm) Qty: 10 0RF Referrals: [facility] [Primary Care Provider] - 1 week Print Language: Yoruba
[2024-05-19 19:05] VITALS: BP 160/97; PULSE 72; RESP 20; TEMP 37.3; O2SAT 99
[2024-05-19 19:11] VITALS: BP 160/97; PULSE 72; RESP 20; TEMP 37.3; O2SAT 99
== END 2024-05-19 19:14 | disposition home or self-care (01) ==
PROVIDERS: Emergency Provider Emergency Medicine
DX: J10.1 Influenza due to other identified influenza virus with other respiratory manifestations (principal); R05.9 Cough, unspecified; R51.9 Headache, unspecified; M79.10 Myalgia, unspecified site; F17.210 Nicotine dependence, cigarettes, uncomplicated; Z03.818 Encounter for observation for suspected exposure to other biological agents ruled out
CPT/HCPCS: 0241U; 71045; 99282; 99283

== ENCOUNTER → 2024-05-19 17:35 | Outpatient (BNV) | payer MEDICAID, SELFPAY | PROVIDERS: Visit Provider Nuclear Medicine | DX: R05.9 Cough, unspecified (principal) | CPT/HCPCS: 71045 ==